=== PATIENT | female | born 1995 | race Two or more races ===

== ENCOUNTER 2023-07-08 19:55 | Emergency (ER) | payer OTHER, SELFPAY ==
--- NOTE | ~2023-07-08 | XR_ITS ---
EXAMINATION: XR CHEST CLINICAL INFORMATION: Cough history of asthma COMPARISON: None available. TECHNIQUE: Frontal view of the chest was obtained. FINDINGS: No focal consolidation. No pneumothorax. Trachea is midline. Heart and mediastinal silhouette is not enlarged. No large pleural effusion. Osseous structures are intact. Soft tissues are unremarkable. XR/XR chest 1V IMPRESSION: No acute cardiopulmonary process.
[2023-07-08 20:03] VITALS: BP 100/64; PULSE 72; RESP 19; TEMP 36.5; O2SAT 97; BMI 23.7
--- OUTSIDE RECORDS SUMMARY | 2023-07-08 20:43 | XMS_ITS | Continuity of Care Document ---
Author Name Unknown Organization [facility] Address [address], 4t [place] [address]- Care Team Providers Care Sulfonator Operator Name Role Phone Carolyn NÚÑEZ, Renetta García Primary Care Physici an [id number] Date(s): 04/20/23 - 05/20/23 [facility] [address], [address]th [place] [address]- Attending Physician: Danii Galicia Admitting Physician: Danii Galciia Referring Physician: AdmtrDanii Allergies, Adverse Reactions, Alerts No Known Allergies Immunizations Given and Recorded Vaccine Date Status Refusal Reason SARS-CoV-2 (COVID-19) mRNA BNT-162b2 vac 10/16/20 Recorded SARS-CoV-2 (COVID-19) mRNA BNT-162b2 vac 09/25/20 Recorded tetanus/diphtheria/pertussis, acel(Tdap) 11/30/17 Given Medications clotrimazole 1% vaginal cream with applicator 1 application, Vaginally, Daily at bedtime, for 7 nights If 1% is not available, change to clotrimazole 2% cream vaginal hs x 3 nights, # 45 Gm, 0 Refills, Maintenance, 04/21/23 11:18:00 EST, [facility]/pharmacy #[id number], Partial fill upon patient reque... Start Date: 04/21/23 Status: Ordered ibuprofen 600 mg oral tablet 600 mg, 1, tablet, By Mouth, Every 8 hours, # 30 tablet, Refills 0, Tot. Refills 0, Maintenance, 03/17/23 20:19:00 EDT, Route to Pharmacy Electronically, [facility]/pharmacy #[id number], Partial fill upon patientrequest if the prescription is for a schedule II op... Start Date: 03/17/23 Status: Ordered omeprazole 20 mg oral enteric coated capsule 1 capsule = 20 mg, By Mouth, 2 times a day, # 180 capsule, 2 Refills, Maintenance, 08/26/21 8:33:00EDT, EC Capsule, [id number], Partial fill upon patient request if the prescription is for aschedule II opioid drug., 154.9, cm, 08/14/21 14:18... Start Date: 08/26/21 Status: Ordered Problem List Condition Confirmation Course Effective Dates Status Health St [facility] Informant Asthma Confirmed Active Chronic pelvic pain in female Confirmed Active Irregular menses Confirmed Active Amharic speaking patient - loan associate required Confirmed Active Dyspareunia, female Confirmed Active Last Pap smear 08/31/20 negative with negative HPV Confirmed Active Social History Social History Type Response Smoking Status Never (less than 100 in lifetime); Exposure to Secondhand Smoke: No entered on: 05/21/21 Sex Patient Care team information Care Team Personnel Name: Carolyn NÚÑEZ, Renetta García Position: [facility] PCO Associate Professional Member Role: PCP Address: Address: [address] [place] [address]- Name: Zoila Levi RN Position: [facility] OB RN Member Role: Primary Care Nurse Name: Stef Vieyra RN Position: [facility] OB RN Member Role: Primary Care Nurse Care Team Related Persons Name: VERONA BRITO Address: [id number] Address: home [address] [place] [id number] [place] Name: CARMEN MONTIEL Address: [address] [address]
--- OUTSIDE RECORDS SUMMARY | 2023-07-08 20:43 | XMS_ITS | Continuity of Care Document ---
Author Name Unknown Organization [facility] Address [address] [place] [address]- Care Team Providers Care Hose Tubing Backer Name Role Phone Carolyn NÚÑEZ, Renetta García Primary Care Physici an [place] [facility] [place]20 - 10/01/20 [facility]/[address] [address]- Allergies, Adverse Reactions, Alerts Substance Reaction Severity Status NKA Active Immunizations Given and Recorded Vaccine Date Status Refusal Reason tetanus/diphtheria/pertussis, acel(Tdap) 11/30/17 Given Medications Diflucan 150 mg oral tablet 1 tablet = 150 mg, By Mouth, Once, # 1 tablet, 1 Refills, Soft Stop, 09/04/18 15:11:47 EDT Start Date: 09/04/18 Status: Ordered omeprazole 20 mg oral delayed release tablet 1 tablet = 20 mg, By Mouth, Daily, Take 30 minutes before meal. Martiniquais, # 60 tablet, 1 Refills, Maintenance, 06/30/20 9:17:00 EST, EC Tablet, [facility], Partial fill upon patient request if the prescription is for a schedule II... Start Date: 06/30/20 Status: Ordered ondansetron 4 mg oral tablet, disintegrating 1 tablet = 4 mg, By Mouth, Every 8 hours, PRN as needed for nausea/vomiting, # 9 tablet, 0 Refills,Maintenance, 06/26/20 0:45:00 EST, DIS Tablet, [id number], Partial fill upon patient request if the prescription is for a schedule II... Start Date: 06/26/20 Stop Date: 06/29/20 Status: Ordered pantoprazole 20 mg oral delayed release tablet 1 tablet = 20 mg, By Mouth, Daily, # 30 tablet, 2 Refills, Maintenance, 09/30/20 15:31:00 EDT, 158,cm, 09/16/20 9:46:00 EDT, Height, 53.17, kg, 07/16/20 14:40:00 EST, Dry Weight Start Date: 09/30/20 Status: Ordered Problem List Condition Effective Dates Status Health Status Inform ant Anemia(Confirmed) Active Asthma(Confirmed) Active Hx of Incompetent cervix in prior , delivered at term(Confirmed) Active LGSIL on Pap smear of cervix(Confirmed) Active History of delivery(Confirmed) Active Martiniquais speaking patient(Confirmed) Active Social History Social History Type Response Smoking Status Never smoker entered on: 05/14/14 Sex
--- OUTSIDE RECORDS SUMMARY | 2023-07-08 20:43 | XMS_ITS | Continuity of Care Document ---
Author Name Unknown Organization [facility] Address [address] [place] [address]- Care Team Providers Care Specification Manager Name Role Phone Carolyn NÚÑEZ, Renetta García Primary Care Physici an [place] [facility]25[place]22 - 03/27/22 [facility] [address] [place] [address]- Allergies, Adverse Reactions, Alerts No Known Allergies Immunizations Given and Recorded Vaccine Date Status Refusal Reason SARS-CoV-2 (COVID-19) mRNA BNT-162b2 vac 10/16/20 Recorded SARS-CoV-2 (COVID-19) mRNA BNT-162b2 vac 09/25/20 Recorded tetanus/diphtheria/pertussis, acel(Tdap) 11/30/17 Given Medications omeprazole 20 mg oral enteric coated capsule 1 capsule = 20 mg, By Mouth, 2 times a day, # 180 capsule, 2 Refills, Maintenance, 08/26/21 8:33:00EDT, EC Capsule, [id number], Partial fill upon patient request if the prescription is for aschedule II opioid drug., 154.9, cm, 08/14/21 14:18... Start Date: 08/26/21 Status: Ordered Problem List Condition Confirmation Course Effective Dates Status Health St [facility] Informant Asthma Confirmed Active Chronic pelvic pain in female Confirmed Active Irregular menses Confirmed Active German speaking patient - hourly sign language interpreter required Confirmed Active Dyspareunia, female Confirmed Active Last Pap smear 08/31/20 negative with negative HPV Confirmed Active Social History Social History Type Response Smoking Status Never (less than 100 in lifetime); Exposure to Secondhand Smoke: No entered on: 05/21/21 Sex Patient Care team information Personnel Name: Carolyn NÚÑEZ, Renetta García Address: Address: [address] [place] [address] [place] [address]- [place]
--- OUTSIDE RECORDS SUMMARY | 2023-07-08 20:43 | XMS_ITS | Continuity of Care Document ---
Author Name Unknown Organization [facility] Address [address] [place] [address]- Care Team Providers Care Camp Assistant Name Role Phone Carolyn NÚÑEZ, Renetta García Primary Care Physici an Encounter [facility] Date(s): 09/17/20 - 10/17/20 [facility]/[address] [address]- Allergies, Adverse Reactions, Alerts Substance Reaction Severity [...] Mouth, Daily, Take 30 minutes before meal. Jordanian, # 60 tablet, 1 Refills, Maintenance, 06/30/20 9:17:00 EST, EC Tablet, [facility], Partial fill upon patient request if the prescription is for a schedule II... Start Date: 06/30/20 Status: Ordered ondansetron 4 mg oral tablet, disintegrating 1 tablet = 4 mg, By Mouth, Every 8 hours, PRN as needed for nausea/vomiting, # 9 tablet, 0 Refills,Maintenance, 06/26/20 0:45:00 EST, DIS Tablet, [facility] #[id number], Partial fill upon patient request if the [...] of cervix(Confirmed) Active History of delivery(Confirmed) Active Jordanian speaking patient(Confirmed) Active Social History Social History Type Response Smoking Status Never smoker entered on: 05/14/14 Sex
--- OUTSIDE RECORDS SUMMARY | 2023-07-08 20:43 | XMS_ITS | Continuity of Care Document ---
Author Name Unknown Organization [facility] Address Unknown Care Team Providers Care Day Care Worker Name Role Phone Carolyn NÚÑEZ, Renetta García Primary Care Physici an [id number] Date(s): 10/06/21 - 11/06/21 [facility] Attending Physician: Vipin Paulino MD Admitting Physician: Vipin Paulino MD Allergies, Adverse Reactions, Alerts No Known Allergies Immunizations Given and Recorded Vaccine Date Status Refusal Reason SARS-CoV-2 (COVID-19) mRNA BNT-162b2 vac 10/16/20 Recorded SARS-CoV-2 (COVID-19) mRNA BNT-162b2 vac 09/25/20 Recorded tetanus/diphtheria/pertussis, acel(Tdap) 11/30/17 Given Medications albuterol 0.083% inhalation solution 3 mL = 2.5 mg, Inhalation, Every 6 hours, PRN Wheezing/Shortness of Breath, # 60 each, 5 Refills, Maintenance, 10/08/21 16:38:00 EDT, [facility], [id number], Partial fill upon patient request if the prescription is for a schedule II opioid drug.... Start Date: 10/08/21 Status: Ordered omeprazole 20 mg oral enteric coated capsule 1 capsule = 20 mg, By Mouth, 2 times a day, # 180 capsule, 2 Refills, Maintenance, 08/26/21 8:33:00EDT, EC Capsule, [id number], Partial fill upon patient request if the prescription is for aschedule II opioid drug., 154.9, cm, 08/14/21 14:18... Start Date: 08/26/21 Status: Ordered tamsulosin 0.4 mg oral capsule 0.4 mg, 1, capsule, By Mouth, Daily, Take 1 tablet by mouth daily for bladder spasms in hebrew please alba, # 5 capsule, Refills 0, Tot. Refills 0, Maintenance, 05/03/21 16:06:00 EST, Route to Pharmacy Electronically, [facility],... Start Date: 05/03/21 Stop Date: 05/08/21 Status: Ordered Problem List Condition Effective Dates Status Health Status Inform ant Asthma(Confirmed) Active Chronic pelvic pain in female(Confirmed) Active Irregular menses(Confirmed) Active Niuean speaking patient - i nterpreter required(Confirmed) Active Dyspareunia, female(Confirmed) Active Last Pap smear 08/31/20 negat nicole with negative HPV(Confirmed) Active Social History Social History Type Response Smoking Status Never (less than 100 in lifetime); Exposure to Secondhand Smoke: No entered on: 05/21/21 Sex
--- OUTSIDE RECORDS SUMMARY | 2023-07-08 20:43 | XMS_ITS | Continuity of Care Document ---
Author Name Unknown Organization [facility] Address [address] [place] [address]- Care Team Providers Care Senior Sales Representative Name Role Phone Carolyn NÚÑEZ, Renetta García Primary Care Physici an [id number] Date(s): 08/14/21 - 08/21/21 [facility] [address] [place] [address]- Attending Physician: Melina Antoine MD Referring Physician: Renetta Leon NP Allergies, Adverse Reactions, Alerts No Known Allergies Immunizations Given and Recorded Vaccine Date Status Refusal Reason tetanus/diphtheria/pertussis, acel(Tdap) 11/30/17 Given Medications Acetaminophen = 500 mg, By Mouth, 3 times a day, Maintenance, 04/14/21 13:03:00 EST, Partial fill upon patient request if the prescription is for a schedule II opioid drug. Start Date: 04/14/21 Status: Ordered dicyclomine 10 mg oral capsule 1 capsule = 10 mg, By Mouth, 4 times a day, # 120 capsule, 2 Refills, Maintenance, 05/16/21 13:27:00 EST, [facility], Partial fill upon patient request if the prescription is for a schedule II opioid drug., 154.9, cm, 05/03/21 15:2... Start Date: 05/16/21 Stop Date: 08/14/21 Status: Ordered fluconazole 150 mg oral tablet See Instructions, 1 tablet By Mouth. May repeat in 3 days if symptoms persist., # 2 tablet, 0 Refills, Maintenance, 08/14/21 14:57:00 EST, Tablet, [facility]/pharmacy #[id number], Partial fill upon patient request if the prescription is for a schedule II opioid d... Start Date: 08/14/21 Status: Ordered omeprazole 20 mg oral enteric coated capsule 1 capsule = 20 mg, By Mouth, 2 times a day, # 30 capsule, 2 Refills, Maintenance, 05/16/21 13:27:00EST, EC Capsule, [facility], Partial fill upon patient request if the prescription is for a schedule II opioid drug., 154.9, cm, 11... Start Date: 05/16/21 Status: Ordered tamsulosin 0.4 mg oral capsule 0.4 mg, 1, capsule, By Mouth, Daily, Take 1 tablet by mouth daily for bladder spasms in ukrainian please ke, # 5 capsule, Refills 0, Tot. Refills 0, Maintenance, 05/03/21 16:06:00 EST, Route to Pharmacy Electronically, [facility],... Start Date: 05/03/21 Stop Date: 05/08/21 Status: Ordered Problem List Condition Effective Dates Status Health Status Inform ant Asthma(Confirmed) Active Hx of Incompetent cervix in prior , delivered at term(Confirmed) Active Chronic pelvic pain in female(Confirmed) Active History of delivery(Confirmed) Active Georgian speaking patient(Confirmed) Active Vital Signs Most recent to oldest [Reference Range]: 1 Height 154.9 cm (08/14/21 2:18 PM) Oxygen Saturation [94-100 %] 100 % (08/14/21 2:18 PM) Pulse Rate [55-90 bpm] 95 bpm *H* (08/14/21 2:18 PM) Blood Pressure [90-138/55-84 mm Hg] 117/ 52mm Hg (08/14/21 2:18 PM) Respiratory Rate [16-30 br/min] 16 br/mi n (08/14/21 2:18 PM) Temperature [96.8-100.4 DegF] 98.8 DegF (08/14/21 2:18 PM) Mode of Delivery (Oxygen) Room air (08/14/21 2:18 PM) Blood pressure sites Arm, right (08/14/21 2:18 PM) Temperature Route Temporal (08/14/21 2:18 PM) Social History Social History Type Response Smoking Status Never (less than 100 in lifetime); Exposure to Secondhand Smoke: No entered on: 05/21/21 Sex
--- OUTSIDE RECORDS SUMMARY | 2023-07-08 20:43 | XMS_ITS | Continuity of Care Document ---
Author Name Unknown [facility] Address [address] [place] [address]- Care Team Providers Care Loan Supervisor Name Role Phone Carolyn NÚÑEZ, Renetta García Primary Care Physici an Encounter [facility] Date(s): 01/31/22 - 03/02/22 [facility] [address], 4th [place] [address]- [place] Allergies, Adverse Reactions, Alerts No Known Allergies [...] female Confirmed Active Irregular menses Confirmed Active Estonian speaking patient - automotive artist required Confirmed Active Dyspareunia, female Confirmed Active Last Pap smear 08/31/20 negative with negative HPV Confirmed Active Social History Social History Type Response Smoking Status Never (less than 100 in lifetime); Exposure to Secondhand Smoke: No entered on: 05/21/21 Sex Patient Care team information Personnel Name: Carolyn NÚÑEZ, Renetta García Address: Address: [address] [place] [id number]
--- OUTSIDE RECORDS SUMMARY | 2023-07-08 20:43 | XMS_ITS | Continuity of Care Document ---
Author Name Unknown Organization [facility] Address [address] [place] [address]- Care Team Providers Care Heel Reducer Name Role Phone Carolyn NÚÑEZ, Renetta García Primary Care Physici an [facility] [id number] Date(s): 05/02/23 - 06/01/23 [facility] [place] [address]- Attending Physician: Danii Galicia Admitting Physician: Admtr [id number] Referring Physician: Admtr, Ar8 Allergies, Adverse Reactions, Alerts No Known Allergies [...] Gm, 0 Refills, Maintenance, 04/21/23 11:18:00 EST, [facility]/pharmacy #[id number], Partial fill upon patient reque... Start Date: 04/21/23 Status: Ordered ibuprofen 600 mg oral tablet 600 mg, 1, tablet, By Mouth, Every 8 hours, # 30 tablet, Refills 0, Tot. Refills 0, Maintenance, 03/17/23 20:19:00 EDT, Route to Pharmacy Electronically, [facility]/pharmacy #[id number], Partial fill upon patientrequest if the prescription is for a schedule II op... Start Date: 03/17/23 Status: Ordered omeprazole 20 mg oral enteric coated capsule 1 capsule = 20 mg, By Mouth, 2 times a day, # 180 capsule, 2 Refills, Maintenance, 08/26/21 8:33:00EDT, EC Capsule, [id number], Partial fill upon patient request if the prescription is for aschedule II opioid drug., 154.9, cm, 08/14/21 14:18... Start Date: 08/26/21 Status: Ordered Problem List Condition Confirmation Course Effective Dates Status Health St [facility] Informant Asthma Confirmed Active Chronic pelvic pain in female Confirmed Active Irregular menses Confirmed Active Moldovan speaking patient - cash reconciliation specialist required Confirmed Active Dyspareunia, female Confirmed Active Last Pap smear 08/31/20 negative with negative HPV Confirmed Active Social History Social History Type Response Smoking Status Never (less than 100 in lifetime); Exposure to Secondhand Smoke: No entered on: 05/21/21 Sex Patient Care team information Care Team Personnel Name: Carolyn NÚÑEZ, Renetta García Position: [facility] PCO Associate Professional Member Role: PCP Address: Address: [address] [place] [address]- Name: Zoila Levi RN Position: [facility] OB RN Member Role: Primary Care Nurse Name: Stef Vieyra RN Position: [facility] OB RN Member Role: Primary Care Nurse Care Team Related Persons Name: VERONA BRITO Address: [address] Address: home [address] [place] [address] [place] Name: CARMEN MONTIEL Address: home [address] [place] [address]
--- OUTSIDE RECORDS SUMMARY | 2023-07-08 20:43 | XMS_ITS | Continuity of Care Document ---
Author Name Unknown Organization [facility] Address Unknown Care Team Providers Care Global Recruiter Name Role Phone Carolyn NÚÑEZ, Renetta García Primary Care Physici an [place] [facility] [place] 07/[place]21 - 08/29/21 [facility] Attending Physician: Danii Galicia Admitting Physician: Danii Galicia Referring Physician: Danii Galicia Allergies, Adverse Reactions, Alerts No Known Allergies Immunizations Given and Recorded Vaccine Date Status Refusal Reason tetanus/diphtheria/pertussis, acel(Tdap) 11/30/17 Given Medications omeprazole 20 mg oral enteric coated capsule 1 capsule = 20 mg, By Mouth, 2 times a day, # 180 capsule, 2 Refills, Maintenance, 08/26/21 8:33:00EDT, EC Capsule, [facility]/pharmacy #[id number], Partial fill upon patient request if the prescription is for aschedule II opioid drug., 154.9, cm, 08/14/21 14:18... Start Date: 08/26/21 Status: Ordered tamsulosin 0.4 mg oral capsule 0.4 mg, 1, capsule, By Mouth, Daily, Take 1 tablet by mouth daily for bladder spasms in mexican please ke, # 5 capsule, Refills 0, Tot. Refills 0, Maintenance, 05/03/21 16:06:00 EST, Route to Pharmacy Electronically, [facility],... Start Date: 05/03/21 Stop Date: 05/08/21 Status: Ordered Problem List Condition Effective Dates Status Health Status Inform ant Asthma(Confirmed) Active Hx of Incompetent cervix in prior , delivered at term(Confirmed) Active Chronic pelvic pain in female(Confirmed) Active History of delivery(Confirmed) Active Nigerian speaking patient(Confirmed) Active Social History Social History Type Response Smoking Status Never (less than 100 in lifetime); Exposure to Secondhand Smoke: No entered on: 05/21/21 Sex
--- OUTSIDE RECORDS SUMMARY | 2023-07-08 20:43 | XMS_ITS | Continuity of Care Document ---
Author Name Unknown Organization [facility] Address Unknown Care Team Providers Care Cuprous Chloride Helper Name Role Phone Carolyn NÚÑEZ, Renteta García Primary Care Physici an [id number] Date(s): 10/07/21 - 11/06/21 [facility] Attending Physician: Danii Galicia Admitting Physician: Danii [...] by mouth daily for bladder spasms in tamazight please alba, # 5 capsule, Refills 0, Tot. Refills 0, Maintenance, 05/03/21 16:06:00 EST, Route to Pharmacy Electronically, [facility],... Start Date: 05/03/21 Stop Date: 05/08/21 Status: Ordered Problem List Condition Effective Dates Status Health Status Inform ant Asthma(Confirmed) Active Chronic pelvic pain in female(Confirmed) Active Irregular menses(Confirmed) Active Turkmen speaking patient - i nterpreter required(Confirmed) Active Dyspareunia, female(Confirmed) Active Last Pap smear 08/31/20 negat nicole with negative HPV(Confirmed) Active Social History Social History Type Response Smoking Status Never (less than 100 in lifetime); Exposure to Secondhand Smoke: No entered on: 05/21/21 Sex
--- OUTSIDE RECORDS SUMMARY | 2023-07-08 20:43 | XMS_ITS | Continuity of Care Document ---
Author Name Unknown Organization [facility] Address Unknown Care Team Providers Care Cash Accountant Name Role Phone Carolyn NÚÑEZ, Renetta García [facility] Physici [id number] Date(s): 05/03/21 - 06/02/21 [facility] Allergies, Adverse Reactions, Alerts Substance Reaction Severity [...] capsule, 2 Refills, Maintenance, 05/16/21 13:27:00 EST, [facility], Partial fill upon patient request if the prescription is for a schedule II opioid drug., 154.9, cm, 05/03/21 15:2... Start Date: 05/16/21 Stop Date: 08/14/21 Status: Ordered omeprazole 20 mg oral enteric coated capsule 1 capsule = 20 mg, By Mouth, 2 times a day, # 30 capsule, 2 Refills, Maintenance, 05/16/21 13:27:00EST, EC Capsule, [facility], Partial fill upon patient request if the prescription is for a schedule II opioid drug., 154.9, cm, 11... Start Date: 05/16/21 Status: Ordered tamsulosin 0.4 mg oral capsule 0.4 mg, 1, capsule, By Mouth, Daily, Take 1 tablet by mouth daily for bladder spasms in kiswahili please ke, # 5 capsule, Refills 0, Tot. Refills 0, Maintenance, 05/03/21 16:06:00 EST, Route to Pharmacy Electronically, [facility],... Start Date: 05/03/21 Stop Date: 05/08/21 Status: Ordered Problem List Condition Effective Dates Status Health Status Inform ant Anemia(Confirmed) Active Asthma(Confirmed) Active Hx of Incompetent cervix in prior , delivered at term(Confirmed) Active LGSIL on Pap smear of cervix(Confirmed) Active History of delivery(Confirmed) Active Welsh speaking patient(Confirmed) Active Social History Social History Type Response Smoking Status Never (less than 100 in lifetime); Exposure to Secondhand Smoke: No entered on: 05/21/21 Sex
--- OUTSIDE RECORDS SUMMARY | 2023-07-08 20:43 | XMS_ITS | Continuity of Care Document ---
Author Name Unknown Organization [facility] Address [address] [place] [address]- Care Team Providers Care Fingerer Name Role Phone Carolyn NÚÑEZ, Renetta García Primary Care Physici an Encounter [facility] [id number] Date(s): 04/30/23 - 05/30/23 [facility] [address] [place] [address]- Attending Physician: Danii Galicia Admitting Physician: AdmtrDanii Referring Physician: Admtr, Ar8 Allergies, Adverse Reactions, [...] Gm, 0 Refills, Maintenance, 04/21/23 11:18:00 EST, [facility]/pharmacy #[id number], Partial fill upon patient reque... Start Date: 04/21/23 Status: Ordered ibuprofen 600 mg oral tablet 600 mg, 1, tablet, By Mouth, Every 8 hours, # 30 tablet, Refills 0, Tot. Refills 0, Maintenance, 03/17/23 20:19:00 EDT, Route to Pharmacy Electronically, [facility]/pharmacy #[id number], Partial fill upon patientrequest if the prescription is for a schedule II op... Start Date: 03/17/23 Status: Ordered omeprazole 20 mg oral enteric coated capsule 1 capsule = 20 mg, By Mouth, 2 times a day, # 180 capsule, 2 Refills, Maintenance, 08/26/21 8:33:00EDT, EC Capsule, [facility]/pharmacy #[id number], Partial fill upon patient request if the prescription is for aschedule II opioid drug., 154.9, cm, 08/14/21 14:18... Start Date: 08/26/21 Status: Ordered Problem List Condition Confirmation Course Effective Dates Status Health St [facility] Informant Asthma Confirmed Active Chronic pelvic pain in female Confirmed Active Irregular menses Confirmed Active Rwandan speaking patient - retirement benefits specialist required Confirmed Active Dyspareunia, female Confirmed Active Last Pap smear 08/31/20 negative with negative HPV Confirmed Active Social History Social History Type Response Smoking Status Never (less than 100 in lifetime); Exposure to Secondhand Smoke: No entered on: 05/21/21 Sex Patient Care team information Care Team Personnel Name: Carolyn NÚÑEZ, Renetta García Position: [facility] PCO Associate Professional Member Role: PCP Address: Address: [address] [place] [address]- Name: Zoila Levi RN Position: [facility] OB RN Member Role: Primary Care Nurse Name: Stef Vieyra RN Position: [facility] OB RN Member Role: Primary Care Nurse Care Team Related Persons Name: VERONA BRITO Address: [id number] Address: [address] [place] [address] [place] Name: CARMEN MONTIEL Address: [address] [place] [address]
--- OUTSIDE RECORDS SUMMARY | 2023-07-08 20:43 | XMS_ITS | Continuity of Care Document ---
Author Name Unknown Organization [facility] Address [address] [place] [address]- Care Team Providers Care Stonemason Apprentice Name Role Phone Carolyn NÚÑEZ, Renetta García Primary Care Physici an Encounter [facility] Date(s): 04/21/23 - 05/21/23 [facility] [place] [address]- [place] Allergies, Adverse Reactions, Alerts No Known [...] Gm, 0 Refills, Maintenance, 04/21/23 11:18:00 EST, [facility]/pharmacy #[id number], Partial fill upon patient reque... Start Date: 04/21/23 Status: Ordered ibuprofen 600 mg oral tablet 600 mg, 1, tablet, By Mouth, Every 8 hours, # 30 tablet, Refills 0, Tot. 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 Active Dyspareunia, female Confirmed Active Last Pap smear 08/31/20 negative with negative HPV Confirmed Active Social History Social History Type Response Smoking Status Never (less than 100 in lifetime); Exposure to Secondhand Smoke: No entered on: 05/21/21 Sex Patient Care team information Care Team Personnel Name: Carolyn NÚÑEZ, Renetta García Position: [facility] PCO Associate Professional Member Role: PCP Address: Address: [address] [place] [address]- Name: Zoila Levi RN Position: [facility] OB RN Member Role: Primary Care Nurse Name: Stef Vieyra RN Position: [facility] OB RN Member Role: Primary Care Nurse Care Team Related Persons Name: VERONA BRITO Address: [address] Address: home [address] [place] [address] [place] Name: CARMEN MONTIEL Address: home [address] [place] [address]
--- OUTSIDE RECORDS SUMMARY | 2023-07-08 20:43 | XMS_ITS | Continuity of Care Document ---
Author Name Unknown Organization [facility] Address [address] [place] [address]- Care Team Providers Care Sales Project Administrator Name Role Phone Carolyn NÚÑEZ, Renetta García Primary Care Physici an Encounter [facility] ACCT [facility] [id number] Date(s): 09/16/20 - 10/16/20 [facility]/[address] [address]- Attending Physician: Danii Galicia Admitting Physician: AdmtrDanii Referring Physician: Admtr, Danii Allergies, Adverse Reactions, Alerts Substance Reaction Severity [...] Mouth, Daily, Take 30 minutes before meal. Maltese, # 60 tablet, 1 Refills, Maintenance, 06/30/20 9:17:00 EST, EC Tablet, [facility], Partial fill upon patient request if the prescription is for a schedule II... Start Date: 06/30/20 Status: Ordered ondansetron 4 mg oral tablet, disintegrating 1 tablet = 4 mg, By Mouth, Every 8 hours, PRN as needed for nausea/vomiting, # 9 tablet, 0 Refills,Maintenance, 06/26/20 0:45:00 EST, DIS Tablet, [facility][id number], Partial fill upon patient request if the [...] of cervix(Confirmed) Active History of delivery(Confirmed) Active Maltese speaking patient(Confirmed) Active Social History Social History Type Response Smoking Status Never smoker entered on: 05/14/14 Sex
--- OUTSIDE RECORDS SUMMARY | 2023-07-08 20:43 | XMS_ITS | Continuity of Care Document ---
Author Name Unknown Organization [facility] Address [address] [place] [address]- Care Team Providers Care Faculty Administrator Name Role Phone Carolyn NÚÑEZ, Renetta García Primary Care Physici an Encounter [facility] Date(s): 08/25/20 - 09/24/20 [facility]/[address] [address]- Allergies, Adverse Reactions, Alerts Substance Reaction Severity [...] Mouth, Daily, Take 30 minutes before meal. Central African, # 60 tablet, 1 Refills, Maintenance, 06/30/20 9:17:00 EST, EC Tablet, [facility], Partial fill upon patient request if the prescription is for a schedule II... Start Date: 06/30/20 Status: Ordered ondansetron 4 mg oral tablet, disintegrating 1 tablet = 4 mg, By Mouth, Every 8 hours, PRN as needed for nausea/vomiting, # 9 tablet, 0 Refills,Maintenance, 06/26/20 0:45:00 EST, DIS Tablet, [facility][id number], Partial fill upon patient request if the prescription is for a schedule II... Start Date: 06/26/20 Stop Date: 06/29/20 Status: Ordered Problem List Condition Effective Dates Status Health Status Inform ant Anemia(Confirmed) Active Asthma(Confirmed) Active Hx of Incompetent cervix in prior , delivered at term(Confirmed) Active LGSIL on Pap smear of cervix(Confirmed) Active History of delivery(Confirmed) Active Central African speaking patient(Confirmed) Active Social History Social History Type Response Smoking Status Never smoker entered on: 05/14/14 Sex
--- OUTSIDE RECORDS SUMMARY | 2023-07-08 20:43 | XMS_ITS | Continuity of Care Document ---
Author Name Unknown Organization [facility] Address [address], [address] [place] [address]- Care Team Providers Care Client Hr Manager Name Role Phone Carolyn NÚÑEZ, Renetta García [id number]14[facility] - 01/13/[facility] [employer] [facility] [address], [address] [place] [address]- Attending Physician: Danii Galicia Admitting Physician: Danii Galicia Referring Physician: AdmtrDanii Allergies, Adverse Reactions, Alerts [...] for aschedule II opioid drug., 154.9, cm, 03/12/22 14:18... Start Date: 08/26/21 Status: Ordered tamsulosin 0.4 mg oral capsule 0.4 mg, 1, capsule, By Mouth, Daily, Take 1 tablet by mouth daily for bladder spasms in french please alba, # 5 capsule, Refills 0, Tot. Refills 0, Maintenance, 05/03/21 16:06:00 EST, Route to Pharmacy Electronically, [facility],... Start Date: 05/03/21 Stop Date: 05/08/21 Status: Ordered Problem List Condition Effective Dates Status Health Status Inform ant Asthma(Confirmed) Active Chronic pelvic pain in female(Confirmed) Active Irregular menses(Confirmed) Active Bulgarian speaking patient - i nterpreter required(Confirmed) Active Dyspareunia, female(Confirmed) Active Last Pap smear 08/31/20 negat nicole with negative HPV(Confirmed) Active Social History Social History Type Response Smoking Status Never (less than 100 in lifetime); Exposure to Secondhand Smoke: No entered on: 05/21/21 Sex
--- OUTSIDE RECORDS SUMMARY | 2023-07-08 20:43 | XMS_ITS | Continuity of Care Document ---
Author Name Unknown Organization [facility] Address [address], [address]t [place] [address]- Care Team Providers Care Dumper Name Role Phone Carolyn NÚÑEZ, Renetta García Primary [facility]ici [id number]/27/23 [facility] [address], [address] [place] [address]- Attending Physician: Maribel Kebede MD Referring Physician: Carolyn NÚÑEZ, Renetta García Allergies, Adverse Reactions, Alerts No Known Allergies [...] Gm, 0 Refills, Maintenance, 04/21/23 11:18:00 EST, [facility]/pharmacy #[id number], Partial fill upon patient reque... Start Date: 04/21/23 Status: Ordered ibuprofen 600 mg oral tablet 600 mg, 1, tablet, By Mouth, Every 8 hours, # 30 tablet, Refills 0, Tot. Refills 0, Maintenance, 03/17/23 20:19:00 EDT, Route to Pharmacy Electronically, [facility]/pharmacy #[id number], Partial fill upon patientrequest if the prescription is for a schedule II op... Start Date: 03/17/23 Status: Ordered metroNIDAZOLE 500 mg oral tablet 1 tablet = 500 mg, By Mouth, 2 times a day, for 7 days, do not drink alcohol, # 14 tablet, 0 Refills, Acute 04/28/23 11:17:00 EST, 04/21/23 11:17:00 EST, [id number], ., 155, cm, 04/20/23 15:27:00 EST, Height, 54.5, kg, 03/17/23 20:04:00 EDTRomy. 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 Active Dyspareunia, female Confirmed Active Last Pap smear 08/31/20 negative with negative HPV Confirmed Active Vital Signs Most recent to oldest [Reference Range]: 1 Height 155 cm (04/20/23 3:27 PM) Weight 56.18 kg (04/20/23 3:27 PM) Pulse Rate [55-90 bpm] 82 bpm (04/20/23 3:27 PM) Body Mass Index [18.5-24.99 kg/m2] 23.38 kg/m2 (04/20/23 3:27 PM) Blood Pressure [90-138/55-84 mm Hg] 110/ 62mm Hg (04/20/23 3:27 PM) Blood pressure sites Arm, right (04/20/23 3:27 PM) Weight Obtained Via Standing scale (04/20/23 3:27 PM) Social History Social History Type Response Smoking Status Never (less than 100 in lifetime); Exposure to Secondhand Smoke: No entered on: 05/21/21 Sex Patient Care team information Care Team Personnel Name: Carolyn NURSE, Renetta García Position: [facility] PCO Associate Professional Member Role: PCP Address: Address: [address] [place] [address]- Name: Zoila Levi RN Position: [facility] OB RN Member Role: Primary Care Nurse Name: Stef Vieyra RN Position: [facility] OB RN Member Role: Primary Care Nurse Care Team Related Persons Name: VERONA BRITO Address: [address] Address: home [address] [place] [address] [place] Name: CARMEN MONTIEL Address: home [address] [place] [address]
--- OUTSIDE RECORDS SUMMARY | 2023-07-08 20:43 | XMS_ITS | Continuity of Care Document ---
Author Name Unknown Organization [facility] Address [address] [place] [address]- Care Team Providers Care Plant Operations Manager Name Role Phone Carolyn NÚÑEZ, Renetta García Primary Care Physici an Encounter [facility] Date(s): 06/25/20 - 06/26/[address] [address]- Discharge Disposition: A-D/C Home Attending Physician: Xenia Freeman MD Admitting Physician: Xenia Freeman MD Referring Physician: Not on Staff, Referring MD Allergies, Adverse Reactions, Alerts Substance Reaction Severity Status NKA Active Immunizations Given and Recorded Vaccine Date Status Refusal Reason tetanus/diphtheria/pertussis, acel(Tdap) 11/30/17 Given Medications Diflucan 150 mg oral tablet 1 tablet = 150 mg, By Mouth, Once, # 1 tablet, 1 Refills, Soft Stop, 09/04/18 15:11:47 EDT Start Date: 09/04/18 Status: Ordered ibuprofen 600 mg oral tablet 600 mg, 1, tablet, By Mouth, 4 times a day, PRN, for 5 days, # 20 tablet, Refills 0, Tot. Refills 0, Acute 07/01/20 0:45:00 EST, for pain, 06/26/20 0:45:00 EST, Route to Pharmacy Electronically, [facility] #[id number], Partial fill upon patient r... Start Date: 06/26/20 Stop Date: 07/01/20 Status: Ordered ondansetron 4 mg oral tablet, disintegrating 1 tablet = 4 mg, By Mouth, Every 8 hours, PRN as needed for nausea/vomiting, # 9 tablet, 0 Refills,Maintenance, 06/26/20 0:45:00 EST, DIS Tablet, [facility] #[id number], Partial fill upon patient request if the prescription is for a schedule II... Start Date: 06/26/20 Stop Date: 06/29/20 Status: Ordered Problem List Condition Effective Dates Status Health Status Inform ant Anemia(Confirmed) Active Asthma(Confirmed) Active Hx of Incompetent cervix in prior , delivered at term(Confirmed) Active LGSIL on Pap smear of cervix(Confirmed) Active History of delivery(Confirmed) Active Cypriot speaking patient(Confirmed) Active Vital Signs Most recent to oldest [Reference Range]: 1 2 Oxygen Saturation [94-100 %] 100 % (06/26/20 12:41 AM) 100 % (06/25/20 6:20 PM) Pulse Rate [55-90 bpm] 83 bpm (06/26/20 12:41 AM) 84 bpm (06/25/20 6:20 PM) Blood Pressure [90-138/55-84 mm Hg] 102/ 63mm Hg (06/26/20 12:41 AM) 109/55mm Hg (06/25/20 6:20 PM) Respiratory Rate [16-30 br/min] 16 br/mi n (06/26/20 12:41 AM) 16 br/min (06/25/20 6:20 PM) Temperature [96.8-100.4 DegF] 98.2 DegF (06/25/20 6:20 PM) Mode of Delivery (Oxygen) Room air (06/26/20 12:41 AM) Room air (06/25/20 6:20 PM) Blood pressure sites Arm, right (06/26/20 12:41 AM) Arm, right (06/25/20 6:20 PM) Temperature Route Oral (06/25/20 6:20 PM) Social History Social History Type Response Smoking Status Never smoker entered on: 05/14/14 Sex
--- OUTSIDE RECORDS SUMMARY | 2023-07-08 20:43 | XMS_ITS | Continuity of Care Document ---
Author Name Unknown Organization [facility] Address [address] [place] [address]- Care Team Providers Care Shell Core And Molding Supervisor Name Role Phone Carolyn NÚÑEZ, Renetta García Primary Care Physici an En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 Active Dyspareunia, female Confirmed Active Last Pap smear 08/31/20 negative with negative HPV Confirmed Active Social History Social History Type Response Smoking Status Never (less than 100 in lifetime); Exposure to Secondhand Smoke: No entered on: 05/21/21 Sex Patient Care team information Care Team Personnel Name: Carolyn NÚÑEZ, Renetta García Position: [facility] PCO Associate Professional Member Role: PCP Address: Address: [address] [place] [address]- Name: Zoila Levi RN Position: [facility] OB RN Member Role: Primary Care Nurse Name: Stef Vieyra RN Position: [facility] OB RN Member Role: Primary Care Nurse Care Team Related Persons Name: VERONA BRITO Address: [address] Address: home [address] [place] [address] [place] Name: CARMEN MONTIEL Address: home [address] [place] [address]
--- OUTSIDE RECORDS SUMMARY | 2023-07-08 20:43 | XMS_ITS | Continuity of Care Document ---
Author Name Unknown Organization [facility] Address [address] [place] [address]- Care Team Providers Care Instrument Designer Name Role Phone Carolyn NÚÑEZ, Renetta García Primary Care Physici an [place] [facility] Date(s): 08/14/21 - 09/13/21 [facility] [address] [place], [place] [address] Attending Physician: Danii Galicia Admitting Physician: Danii Galicia Referring Physician: AdmtrDanii Allergies, Adverse Reactions, Alerts No Known Allergies Immunizations Given and Recorded Vaccine Date Status Refusal Reason tetanus/diphtheria/pertussis, acel(Tdap) 11/30/17 Given Medications omeprazole 20 mg oral enteric coated capsule 1 capsule = 20 mg, By Mouth, 2 times a day, # 180 capsule, 2 Refills, Maintenance, 08/26/21 8:33:00EDT, EC Capsule, [facility]/pharmacy #[id number], Partial fill upon patient request if the prescription is for aschedule II opioid drug., 154.9, cm, 08/14/21 14:18... Start Date: 08/26/21 Status: Ordered tamsulosin 0.4 mg oral capsule 0.4 mg, 1, capsule, By Mouth, Daily, Take 1 tablet by mouth daily for bladder spasms in hungarian please ke, # 5 capsule, Refills 0, Tot. Refills 0, Maintenance, 05/03/21 16:06:00 EST, Route to Pharmacy Electronically, [facility],... Start Date: 05/03/21 Stop Date: 05/08/21 Status: Ordered Problem List Condition Effective Dates Status Health Status Inform ant Asthma(Confirmed) Active Hx of Incompetent cervix in prior , delivered at term(Confirmed) Active Chronic pelvic pain in female(Confirmed) Active History of delivery(Confirmed) Active Montserratian speaking patient(Confirmed) Active Social History Social History Type Response Smoking Status Never (less than 100 in lifetime); Exposure to Secondhand Smoke: No entered on: 05/21/21 Sex
--- OUTSIDE RECORDS SUMMARY | 2023-07-08 20:44 | XMS_ITS | Continuity of Care Document ---
Author Name Unknown Organization [facility] Address [address] [place] [address]- Care Team Providers Care Chart Computer Name Role Phone Carolyn NÚÑEZ, Renetta García Primary Care Physici an Encounter [facility] [place] Date(s): 03/17/23 - 03/17/[address] [address]- Encounter Diagnosis Pyelonephritis(Final) - 03/17/23 Discharge Disposition: A-D/C Home Attending Physician: Manjit Bo MD Admitting Physician: Manjit Bo MD Referring Physician: Not on Staff, Referring MD Allergies, Adverse Reactions, Alerts No Known Allergies Immunizations Given and Recorded Vaccine Date Status Refusal Reason SARS-CoV-2 (COVID-19) mRNA BNT-162b2 vac 10/16/20 Recorded SARS-CoV-2 (COVID-19) mRNA BNT-162b2 vac 09/25/20 Recorded tetanus/diphtheria/pertussis, acel(Tdap) 11/30/17 Given Medications cefpodoxime 200 mg oral tablet 1 tablet = 200 mg, By Mouth, Every 12 hours, for 10 days, # 20 tablet, 0 Refills, Acute 03/27/23 18:01:00 EDT, 03/17/23 18:01:00 EDT, Tablet, [id number], Partial fill upon patient request if the prescription is for a schedule II opioid drug.,... Start Date: 03/17/23 Stop Date: 03/27/23 Status: Ordered ibuprofen 600 mg oral tablet 600 mg, 1, tablet, By Mouth, Every 8 hours, # 30 tablet, Refills 0, Tot. 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 FINDINGS: Right kidney: 10.1 cm in length. No hydronephrosis. Normal parenchymal thickness and echotexture. No stones. No suspicious mass. Left kidney: 11.0 cm in length. No hydronephrosis. Normal parenchymal thickness and echotexture. Nostones. No suspicious mass. Urinary bladder: Incompletely distended, but no evidence of stone, mass or debris. IMPRESSION: No hydronephrosis or shadowing renal stone. WSN: [id number] Ordering Physician: Manjit Bo MD Dictated By: Rafat Segovia MD Dictated Date/Time: 03/17/23 4:47 pm Reviewed By: Rafat Segovia MD Signed By: Rafat Segovia MD Signed Date/Time: 03/17/23 4:47 pm Transcribed By: LIBBY Transcribed Date/Time: 03/17/23 4:46 pm Vital Signs Most recent to oldest [Reference Range]: 1 2 3 Height 155 cm (03/17/23 8:04 PM) 155 cm (03/17/23 6:00 PM) 155 cm (03/17/23 3:12 PM) Oxygen Saturation [94-100 %] 100 % (03/17/23 8:04 PM) 99 % (03/17/23 6:00 PM) 97 % (03/17/23 3:12 PM) Pulse Rate [55-90 bpm] 72 bpm (03/17/23 8:04 PM) 74 bpm (03/17/23 6:00 PM) 100 bpm *H* (03/17/23 3:12 PM) Blood Pressure [90-138/55-84 mm Hg] 102/56mm Hg (03/17/23 8:04 PM) 98/50mm Hg (03/17/23 6:00 PM) 120/69mm Hg (03/17/23 3:12 PM) Respiratory Rate [16-30 br/min] 17 br/min (03/17/23 8:04 PM) 18 br/min (03/17/23 6:00 PM) 16 br/min (03/17/23 3:12 PM) Temperature [96.8-100.4 DegF] 98.6 DegF (03/17/23 8:04 PM) 98.2 DegF (03/17/23 6:00 PM) 98.6 DegF (03/17/23 3:12 PM) Mode of Delivery (Oxygen) Room air (03/17/23 8:04 PM) Room air (03/17/23 6:00 PM) Room air (03/17/23 3:12 PM) Blood pressure sites Arm, right (03/17/23 8:04 PM) Arm, right (03/17/23 6:00 PM) Arm, left (03/17/23 3:12 PM) Temperature Route Oral (03/17/23 8:04 PM) Oral (03/17/23 6:00 PM) Oral (03/17/23 3:12 PM) Dry Weight 54.5 kg (03/17/23 8:04 PM) 54.5 kg (03/17/23 6:00 PM) 54.5 kg (03/17/23 3:12 PM) Dry Weight Obtained Via Patient/family s tated (03/17/23 3:12 PM) Social History Social History Type Response Smoking Status Never (less than 100 in lifetime); Exposure to Secondhand Smoke: No entered on: 05/21/21 Sex Note * Dc MOHAMUD, Lesly Zarate: PERFORM Event Display: Patient Education Leaflets Authored Date: [id number] Kidney Infection (Adult Female) ?? [id number] Infecci??n renal (carol adulta) Charity infecci??n en kimmy o ambos ri??ones se llama pielonefritis. Suele presentarse cuando entran bacterias en los ri??ones. En casos poco frecuentes, es causada por el ingreso en el ri?n de otros g??rmenes, justin virus, hongos u otros organismos que causan enfermedades. Las bacterias u otros organismos que causan enfermedades pueden entrar en los ri??ones a elba??s de la vejiga o la shruthi, desdeotras partes del cuerpo. Charity infecci??n renal puede volverse grave. Puede causar charity enfermedad grave, formaci??n de cicatrices en los ri??ones o insuficiencia renal, si no se la trata correctamente. Entre las causas comunes de lizzie problema se incluyen las siguientes: ??? No mantener limpia y seca la magalis genital, lo que fomenta el crecimiento de bacterias. ??? Limpiarse de atr??s hacia adelante. De lizzie modo, se arrastran bacterias del recto hacia la abertura urinaria (uretra). ??? Usar pantalones o ropa interior apretados. [place] permite la acumulaci??n de humedad en la magalis genital, lo que ayuda a las bacterias a crecer. ??? Aguantar la orina por per??odos largos. ??? Deshidrataci??n. ??? Infecciones de las v??as urinarias. ??? Obstrucciones de orina que sedrenan desde el ri?n, justin por un c??lculo renal. Las infecciones renales pueden causar s??ntomas parecidos a los de charity infecci??n de vejiga. Los s??ntomas incluyen: ??? Dolor (o ardor) al orinar. ??? Tener que orinar m??s frecuentemente que de costumbre. ??? Shruthi en la orina (de color collins o borden). ??? Dolor o molestias abdominales (del est??hugo), por lo general, en la parte inferior del abdomen. ??? Dolor en el costado o en la espalda. ??? Dolor por encimadel hueso p??bico. ??? Fiebre o escalofr??os. ??? V??mitos. ??? P??rdida de apetito El tratamiento se realiza con antibi??ticos por v??a oral. Los casos m??s graves se tratan con antibi??ticos por v??a intramuscular o IV (intravenosa). Se inicia de inmediato gusman administraci??n y se podr??an modificar charity vez que se los resultados del cultivo de orina muestren los organismos que causaron la infecci??n. El tratamiento ayuda a prevenir charity infecci??n renal m??s grave. Los s??ntomasde las infecciones renales pueden variar seg??n gusman edad. Medicamentos Los medicamentos pueden ayudar a tratar infecciones de la vejiga: ??? [place] los antibi??ticos exactamente seg??n se lo hayan recetado hasta terminarlos, aunque se sienta mejor. [place] es importante paraasegurarse de que la infecci??n haya desaparecido. ??? Elena que le hayan recetado otro medicamento, puede nuris medicamentos de venta evita para aliviar el dolor, la fiebre o las molestias. Si tieneuna enfermedad renal o hep??yuki cr??lamont, consulte con gusman proveedor de atenci??n m??dica antes de nuris estos medicamentos. Tambi??n hable con gusman proveedor de atenci??n m??dica si alguna vez tuvo charity ??lcera estomacal o sangrado gastrointestinal, o si shaka medicamentos anticoagulantes. ?? Cuidados en el hogar Las siguientes son normas de cuidado general: ??? Qu??dese en gusman casa. No vaya al trabajo o la escuela. Descanse en cama hasta que la fiebre desaparezca y usted se sienta mejor, o seg??n le indique gusman proveedor de atenci??n m??dica. ??? [place] abundante cantidad de l??quido, elena que le hayan indicado limitar los l??quidos por otras razones m??dicas. Eso roel?? que el medicamento ingrese mejor al sistema urinario y arrastrar?? las bacterias fuera de gusman cuerpo. Preg??ntele a gusman proveedor de atenci??n m??dica cu??nto l??quido debe beber. ??? Evite mantener relaciones sexuales hasta hilda terminado todo el medicamento y todos los s??ntomas hayan desaparecido. ??? No consuma cafe??na, alcohol ni alimentos picantes. Estas comidas puedan irritar los ri??ones y la vejiga. ??? No se d?? ba??os de espuma. La sensibilidad a las sustancias qu??micas de los ba??os de espuma puede irritar la uretra. ??? Aseg??rese de limpiarse del frente hacia atr??s despu??s de ir al ba??o. ??? Use ropa suelta y ropa interior de algod??n. Prevenci??n Estos pasos para el cuidado personal pueden ayudar a prevenir futuras infecciones: ??? [place] abundante cantidad de l??quidos para prevenir la deshidrataci??n y vaciar la vejiga. H??kim elena que debarestringir el consumo de l??quidos por otros motivos o si gusman proveedor de atenci??n m??dica le diceque no lo alex. ??? Es importante limpiarse correctamente despu??s de ir al ba??o. Aseg??rese de limpiarse del frente hacia atr??s despu??s de ir al ba??o. ??? Orine con m??s frecuencia. No trate de aguantar la orina por mucho tiempo. ??? No use pantalones ni ropa interior ajustados. ??? Mejore gusman dieta para prevenir el estre??imiento. Coma m??s frutas, vegetales y fibra. Coma menos comida chatarra y grasosa. El estre??imiento puede??aumentar la probabilidad de??charity infecci??n en las v??as urinarias. Hable con gusman proveedor de atenci??n m??dica si tiene dificultades para evacuar. ??? Orine yusef despu??s de tener relaciones sexuales, para vaciar la vejiga. ?? Atenci??n de seguimiento Consulte con gusman proveedor de atenci??n m??dica seg??n le hayan indicado. Se podr??an requerir an??lisis adicionales para asegurarse de que la infecci??n haya desaparecido. Es muy importante hacer un seguimiento estrecho y m??s an??lisis para encontrar la causa y prevenir infecciones en el futuro. Si le hicieron un cultivo de orina, se comunicar??n con usted para decirle si es necesario cambiarle el tratamiento. Puede llamar para saber los resultados, si as?? se lo indicaron. Si se hizo charity radiograf??a, tomograf??a computarizada u otra prueba de diagn??stico, le informar??n sobre nuevos hallazgos que puedan afectar la atenci??n m??dica que necesita. Llame al 911 Llame al 911 ante cualquiera de los siguientes s??ntomas: ??? Dificultades para respirar. ??? Debilidad, mareo o desmayo. ??? Frecuencia card??porter r??pida o muy lenta. ??? Debilidad, mareos o desmayos. ??? Problemas para despertarse o confusi??n. ?? Cu??ndo debe buscar atenci??n m??dica Llame a gusman proveedor de atenci??n m??dica de inmediato si le sucede lo siguiente: ??? Fiebre de??100.4?F (38?C) o m??s kylah, o seg??n le indique el proveedor de atenci??n m??dica. ??? No se siente mejor o empeoran los s??ntomas en 1 a 2 d??as despu??s de comenzar a nuris antibi??ticos. ??? Si cualquiera de los s??ntomas persiste despu??s de mark d??as de tratamiento. ??? Aumento del dolor en el est??hugo, en la espalda, el costado del cuerpo o la magalis de la entrepierna. ??? V??mitos persistentes. ??? Problemas para nuris el medicamento recetado a causa de las n??useas o por cualquier otra kelsie??n. ??? Shruthi en la orina, orina de color oscuro, orina de olor f??tido. ??? Problemas para orinar o reducci??n en la cantidad de orina. ??? No corrales orinado en ocho horas, no tiene l??grimas al llorar, presenta confusi??n, tiene los ojos hundidos o la boca seca. ?? Last Reviewed Date: 2016 ?? [id number] [employer] Todos los derechos reservados. Esta informaci??n no pretende sustituir la atenci??n m??dica profesional. S??lo gusman m??dico puede diagnosticar y tratar un problema de brit. ?? Patient Care team information Care Team Personnel Name: Carolyn NÚÑEZ, Renetta García Position: [facility] PCO Associate Professional Member Role: PCP Address: Address: [address] [place] [address]- Name: Zoila Levi RN Position: [facility] OB RN Member Role: Primary Care Nurse Name: Stef Vieyra RN Position: [facility] OB RN Member Role: Primary Care Nurse Name: Vern Lora Position: [facility] ED RN W/OE and Tasks Member Role: Patient Care Provider Name: Lesly Hurtado Position: [facility] Associate Professional Member Role: ED Physician Detector Car Operator Address: Address: [address] [place] [address]- Name: Manjit Bo MD Position: [facility] ED Medicine MD Member Role: Admitting Physician Address: Address: [address] [place] [address] [address] Care Team Related Persons Name: VERONA BRITO Address: [address] Address: home [address] [place] [address] Name: CARMEN MONTIEL Address: home [address] [place] [address]
--- OUTSIDE RECORDS SUMMARY | 2023-07-08 20:44 | XMS_ITS | Continuity of Care Document ---
Author Name Unknown Organization [facility] Address [address] [place] [address]- Care Team Providers Care Head Of Design Name Role Phone Carolyn NÚÑEZ, Renetta García Primary Care Physici an [place] [facility] [place]/23[place]21 - 04/22/21 [facility] [address] [place] [address]- Attending Physician: Danii Galicia Admitting Physician: Danii Galicia Referring Physician: Danii Galicia Allergies, Adverse Reactions, Alerts Substance Reaction Severity Status NKA Active Immunizations Given and Recorded Vaccine Date Status Refusal Reason tetanus/diphtheria/pertussis, acel(Tdap) 11/30/17 Given Medications Acetaminophen = 500 mg, By Mouth, 3 times a day, Maintenance, 04/14/21 13:03:00 EST, Partial fill upon patient request if the prescription is for a schedule II opioid drug. Start Date: 04/14/21 Status: Ordered Problem List Condition Effective Dates Status Health Status Inform ant Anemia(Confirmed) Active Asthma(Confirmed) Active Hx of Incompetent cervix in prior , delivered at term(Confirmed) Active LGSIL on Pap smear of cervix(Confirmed) Active History of delivery(Confirmed) Active British speaking patient(Confirmed) Active Social History Social History Type Response Smoking Status Never smoker entered on: 05/14/14 Sex
--- OUTSIDE RECORDS SUMMARY | 2023-07-08 20:44 | XMS_ITS | Continuity of Care Document ---
Author Name Unknown Organization [facility] Address [address] [place] [address]- Care Team Providers Care Project Management Professor Name Role Phone Carolyn NÚÑEZ, Renetta García Primary Care Physici an [place] [facility] [place]04[place]20 - 09/03/20 [facility] [address] [place], [place] [address] Attending Physician: Danii Galicia Admitting Physician: Danii Galicia Referring Physician: AdmtrDanii Allergies, Adverse Reactions, Alerts Substance Reaction Severity [...] Mouth, Daily, Take 30 minutes before meal. Zambian, # 60 tablet, 1 Refills, Maintenance, 06/30/20 9:17:00 EST, EC Tablet, [facility], Partial fill upon patient request if the prescription is for a schedule II... Start Date: 06/30/20 Status: Ordered ondansetron 4 mg oral tablet, disintegrating 1 tablet = 4 mg, By Mouth, Every 8 hours, PRN as needed for nausea/vomiting, # 9 tablet, 0 Refills,Maintenance, 06/26/20 0:45:00 EST, DIS Tablet, [id number], Partial fill upon patient request if the prescription is for a schedule II... Start Date: 06/26/20 Stop Date: 06/29/20 Status: Ordered Problem List Condition Effective Dates Status Health Status Inform ant Anemia(Confirmed) Active Asthma(Confirmed) Active Hx of Incompetent cervix in prior , delivered at term(Confirmed) Active LGSIL on Pap smear of cervix(Confirmed) Active History of delivery(Confirmed) Active Zambian speaking patient(Confirmed) Active Social History Social History Type Response Smoking Status Never smoker entered on: 05/14/14 Sex
--- OUTSIDE RECORDS SUMMARY | 2023-07-08 20:44 | XMS_ITS | Continuity of Care Document ---
Author Name Unknown Organization [facility] Address [address] [place] [address]- Care Team Providers Care Automotive Parts Specialist Name Role Phone Carolyn NÚÑEZ, Renetta García Primary Care Physici [id number] - 06/[facility] [address]- Attending Physician: Carolyn NÚÑEZ, Renetta García Admitting Physician: Carolyn NÚÑEZ, Renetta García Allergies, Adverse [...] Gm, 0 Refills, Maintenance, 04/21/23 11:18:00 EST, [facility]/pharmacy #[id number], Partial fill upon patient reque... Start Date: 04/21/23 Status: Ordered ibuprofen 600 mg oral tablet 600 mg, 1, tablet, By Mouth, Every 8 hours, # 30 tablet, Refills 0, Tot. Refills 0, Maintenance, 03/17/23 20:19:00 EDT, Route to Pharmacy Electronically, [facility]/pharmacy #[id number], Partial fill upon patientrequest if the prescription is for a schedule II op... Start Date: 03/17/23 Status: Ordered omeprazole 20 mg oral enteric coated capsule 1 capsule = 20 mg, By Mouth, 2 times a day, # 180 capsule, 2 Refills, Maintenance, 08/26/21 8:33:00EDT, EC Capsule, [id number], Partial fill upon patient request if the prescription is for aschedule II opioid drug., 154.9, cm, 08/14/21 14:18... Start Date: 08/26/21 Status: Ordered Problem List Condition Confirmation Course Effective Dates Status Health [facility] Informant Asthma Confirmed Active Chronic pelvic pain in female Confirmed Active Irregular menses Confirmed Active British speaking patient - rehab spec required Confirmed Active Dyspareunia, female Confirmed Active Last Pap smear 08/31/20 negative with negative HPV Confirmed Active Social History Social History Type Response Smoking Status Never (less than 100 in lifetime); Exposure to Secondhand Smoke: No entered on: 05/21/21 Sex Patient Care team information Care Team Personnel Name: Carolyn NÚÑEZ, Renetta García Position: [facility] PCO Associate Professional Member Role: PCP Address: Address: [address] [place] [address]- Name: Zoila Levi RN Position: [facility] OB RN Member Role: Primary Care Nurse Name: Stef Vieyra RN Position: [facility] OB RN Member Role: Primary Care Nurse Care Team Related Persons Name: VERONA BRITO Address: [address] Address: home [address] [place] [address] [place] Name: CARMEN MONTIEL Address: home [address] [place] [address]
--- OUTSIDE RECORDS SUMMARY | 2023-07-08 20:44 | XMS_ITS | Continuity of Care Document ---
Author Name Unknown Organization [facility] Address Unknown Care Team Providers Care Wind Turbine Service Technician Name Role Phone Carolyn NÚÑEZ, Renetta García Primary Care Physici an Encounter [facility] [place] Date(s): 08/04/21 - 09/03/21 [facility] Allergies, Adverse Reactions, Alerts No Known Allergies Immunizations Given and Recorded Vaccine Date Status Refusal Reason tetanus/diphtheria/pertussis, acel(Tdap) 11/30/17 Given Medications omeprazole 20 mg oral enteric coated capsule 1 capsule = 20 mg, By Mouth, 2 times a day, # 180 capsule, 2 Refills, Maintenance, 08/26/21 8:33:00EDT, EC Capsule, [facility]acy #[id number], Partial fill upon patient request if the prescription is for aschedule II opioid drug., 154.9, cm, 08/14/21 14:18... Start Date: 08/26/21 Status: Ordered tamsulosin 0.4 mg oral capsule 0.4 mg, 1, capsule, By Mouth, Daily, Take 1 tablet by mouth daily for bladder spasms in japanese please alba, # 5 capsule, Refills 0, Tot. Refills 0, Maintenance, 05/03/21 16:06:00 EST, Route to Pharmacy Electronically, [facility],... Start Date: 05/03/21 Stop Date: 05/08/21 Status: Ordered Problem List Condition Effective Dates Status Health Status Inform ant Asthma(Confirmed) Active Hx of Incompetent cervix in prior , delivered at term(Confirmed) Active Chronic pelvic pain in female(Confirmed) Active History of delivery(Confirmed) Active New Zealander speaking patient(Confirmed) Active Social History Social History Type Response Smoking Status Never (less than 100 in lifetime); Exposure to Secondhand Smoke: No entered on: 05/21/21 Sex
--- OUTSIDE RECORDS SUMMARY | 2023-07-08 20:44 | XMS_ITS | Continuity of Care Document ---
Author Name Unknown Organization [facility] Address [address] [place] [address]- Care Team Providers Care Manufacturing Engineering Technologist Name Role Phone Carolyn NÚÑEZ, Renetta García Primary Care Physici an [id number] Date(s): 10/12/22 - 12/02/22 [facility] [address]- Attending Physician: Carolyn NÚÑEZ, Renetta García Admitting [...] female Confirmed Active Irregular menses Confirmed Active Luxembourger speaking patient - medicare compliance auditor required Confirmed Active Dyspareunia, female Confirmed Active Last Pap smear 08/31/20 negative with negative HPV Confirmed Active Social History Social History Type Response Smoking Status Never (less than 100 in lifetime); Exposure to Secondhand Smoke: No entered on: 05/21/21 Sex Patient Care team information Care Team Personnel Name: Carolyn NÚÑEZ, Renetta García Position: [facility] PCO Associate Professional Member Role: PCP Address: Address: [address] [place] [address]- Name: Zoila Levi RN Position: [facility] OB RN Member Role: Primary Care Nurse Name: Stef Vieyra RN Position: [facility] OB RN Member Role: Primary Care Nurse Care Team Related Persons Name: VERONA BRITO Address: [address] Address: home [address] Name: CARMEN MONTIEL Address: home [address] [place] [address]
--- OUTSIDE RECORDS SUMMARY | 2023-07-08 20:44 | XMS_ITS | Continuity of Care Document ---
Author Name Unknown Organization [facility] Address Unknown Care Team Providers Care Air Bag Buffer Name Role Phone Carolyn NÚÑEZ, Renetta García Primary Care Physici an Encounter [facility] [place] Date(s): 12/20/21 - 01/19/22 [facility] Allergies, Adverse Reactions, Alerts No Known Allergies [...] by mouth daily for bladder spasms in tur[place] and [place] islander please ke, # 5 capsule, Refills 0, Tot. Refills 0, Maintenance, 05/03/21 16:06:00 EST, Route to Pharmacy Electronically, [facility] [place],... Start Date: 05/03/21 Stop Date: 05/08/21 Status: Ordered Problem List Condition Effective Dates Status Health Status Inform ant Asthma(Confirmed) Active Chronic pelvic pain in female(Confirmed) Active Irregular menses(Confirmed) Active Salvadorean speaking patient - i nterpreter required(Confirmed) Active Dyspareunia, female(Confirmed) Active Last Pap smear 08/31/20 negat nicole with negative HPV(Confirmed) Active Social History Social History Type Response Smoking Status Never (less than 100 in lifetime); Exposure to Secondhand Smoke: No entered on: 05/21/21 Sex
--- OUTSIDE RECORDS SUMMARY | 2023-07-08 20:44 | XMS_ITS | Continuity of Care Document ---
Author Name Unknown Organization [facility] Address Unknown Care Team Providers Care Social Media Marketer Name Role Phone Carolyn NÚÑEZ, Renetta García Primary Care Physici an [facility] [id number] Date(s): 05/21/21 - 06/20/21 [facility] Attending Physician: Danii Galicia Admitting Physician: Danii [...] capsule, 2 Refills, Maintenance, 05/16/21 13:27:00 EST, [facility], Partial fill upon patient request if the prescription is for a schedule II opioid drug., 154.9, cm, 05/03/21 15:2... Start Date: 05/16/21 Stop Date: 08/14/21 Status: Ordered omeprazole 20 mg oral enteric coated capsule 1 capsule = 20 mg, By Mouth, 2 times a day, # 30 capsule, 2 Refills, Maintenance, 05/16/21 13:27:00EST, EC Capsule, [facility], Partial fill upon patient request if [...] 05/03/21 16:06:00 EST, Route to Pharmacy Electronically, [facility],... Start Date: 05/03/21 Stop Date: 05/08/21 Status: Ordered Problem List Condition Effective Dates Status Health Status Inform ant Anemia(Confirmed) Active Asthma(Confirmed) Active Hx of Incompetent cervix in prior , delivered at term(Confirmed) Active LGSIL on Pap smear of cervix(Confirmed) Active History of delivery(Confirmed) Active Mohawk speaking patient(Confirmed) Active Social History Social History Type Response Smoking Status Never (less than 100 in lifetime); Exposure to Secondhand Smoke: No entered on: 05/21/21 Sex
--- OUTSIDE RECORDS SUMMARY | 2023-07-08 20:44 | XMS_ITS | Continuity of Care Document ---
Author Name Unknown Organization [facility] Address [address] [place] [address]- Care Team Providers Care Local Coordinator Name Role Phone Carolyn NÚÑEZ, Renetta García Primary Care Physici an [place] [facility] [place] - 09/06/20 [facility]/[address] [address]- Allergies, Adverse Reactions, Alerts Substance Reaction Severity [...] Mouth, Daily, Take 30 minutes before meal. Kinyarwanda, # 60 tablet, 1 Refills, Maintenance, 06/30/20 9:17:00 EST, EC Tablet, [facility], Partial fill upon patient request if the prescription is for a schedule II... Start Date: 06/30/20 Status: Ordered ondansetron 4 mg oral tablet, disintegrating 1 tablet = 4 mg, By Mouth, Every 8 hours, PRN as needed for nausea/vomiting, # 9 tablet, 0 Refills,Maintenance, 06/26/20 0:45:00 EST, DIS Tablet, [id number], Partial fill upon patient request if the prescription is for a schedule II... Start Date: 06/26/20 Stop Date: 06/29/20 Status: Ordered Problem List Condition Effective Dates Status Health Status Inform ant Anemia(Confirmed) Active Asthma(Confirmed) Active Hx of Incompetent cervix in prior , delivered at term(Confirmed) Active LGSIL on Pap smear of cervix(Confirmed) Active History of delivery(Confirmed) Active Kinyarwanda speaking patient(Confirmed) Active Social History Social History Type Response Smoking Status Never smoker entered on: 05/14/14 Sex
--- OUTSIDE RECORDS SUMMARY | 2023-07-08 20:44 | XMS_ITS | Continuity of Care Document ---
Author Name Unknown Organization [facility] [employer] [facility] Address [address], [address] [place] [address]- Care Team Providers Care Grooming Salon Manager Name Role Phone Carolyn NÚÑEZ, Renetta García Primary [facility]ici [id number]/18[facility] - [facility] [address], [address] [place] [address]- Attending Physician: Amy SHELBY, [place] Allergies, Adverse Reactions, Alerts No Known Allergies [...] by mouth daily for bladder spasms in scottish please alba, # 5 capsule, Refills 0, Tot. Refills 0, Maintenance, 05/03/21 16:06:00 EST, Route to Pharmacy Electronically, [facility],... Start Date: 05/03/21 Stop Date: 05/08/21 Status: Ordered Problem List Condition Effective Dates Status Health Status Inform ant Asthma(Confirmed) Active Chronic pelvic pain in female(Confirmed) Active Irregular menses(Confirmed) Active South Korean speaking patient - i nterpreter required(Confirmed) Active Dyspareunia, female(Confirmed) Active Last Pap smear 08/31/20 negat nicole with negative HPV(Confirmed) Active Social History Social History Type Response Smoking Status Never (less than 100 in lifetime); Exposure to Secondhand Smoke: No entered on: 05/21/21 Sex
--- OUTSIDE RECORDS SUMMARY | 2023-07-08 20:44 | XMS_ITS | Continuity of Care Document ---
Author Name Unknown Organization [facility] Address Unknown Care Team Providers Care Investment Counselor Name Role Phone Carolyn NÚÑEZ, Renetta García Primary Care Physici [id number] Date(s): 05/20/21 - 06/19/21 [facility] Allergies, Adverse Reactions, Alerts No Known [...] capsule, 2 Refills, Maintenance, 05/16/21 13:27:00 EST, [facility], Partial fill upon patient request if the prescription is for a schedule II opioid drug., 154.9, cm, 05/03/21 15:2... Start Date: 05/16/21 Stop Date: 08/14/21 Status: Ordered omeprazole 20 mg oral enteric coated capsule 1 capsule = 20 mg, By Mouth, 2 times a day, # 30 capsule, 2 Refills, Maintenance, 05/16/21 13:27:00EST, EC Capsule, [facility], Partial fill upon patient request if the prescription is for a schedule II opioid drug., 154.9, cm, 11... Start Date: 05/16/21 Status: Ordered tamsulosin 0.4 mg oral capsule 0.4 mg, 1, capsule, By Mouth, Daily, Take 1 tablet by mouth daily for bladder spasms in telugu please ke, # 5 capsule, Refills 0, Tot. Refills 0, Maintenance, 05/03/21 16:06:00 EST, Route to Pharmacy Electronically, [facility],... Start Date: 05/03/21 Stop Date: 05/08/21 Status: Ordered Problem List Condition Effective Dates Status Health Status Inform ant Anemia(Confirmed) Active Asthma(Confirmed) Active Hx of Incompetent cervix in prior , delivered at term(Confirmed) Active LGSIL on Pap smear of cervix(Confirmed) Active History of delivery(Confirmed) Active Hungarian speaking patient(Confirmed) Active Social History Social History Type Response Smoking Status Never (less than 100 in lifetime); Exposure to Secondhand Smoke: No entered on: 05/21/21 Sex
--- OUTSIDE RECORDS SUMMARY | 2023-07-08 20:44 | XMS_ITS | Continuity of Care Document ---
Author Name Unknown Organization [facility] Address [address] [place] [address]- Care Team Providers Care Designated Broker Name Role Phone Carolyn NÚÑEZ, Renetta García Primary Care Physici an [place] [facility] [place] 01/07/21 [facility] [address] [place] [address]- Allergies, Adverse Reactions, Alerts Substance Reaction Severity Status NKA Active Immunizations Given and Recorded Vaccine Date Status Refusal Reason tetanus/diphtheria/pertussis, acel(Tdap) 11/30/17 Given Medications amitriptyline 10 mg oral tablet 10 mg, 1, tablet, By Mouth, Daily at bedtime, # 30 tablet, Refills 2, Tot. Refills 2, Maintenance, 12/10/20 11:11:00 EDT, Route to Pharmacy Electronically, [facility], Partial fill upon patient request if the prescription is for a... Start Date: 12/10/20 Stop Date: 03/10/21 Status: Ordered diphenhydrAMINE 50 mg oral capsule 1 capsule = 50 mg, By Mouth, Once, 0 Refills, Maintenance, 10/21/20 7:25:00 EDT, Partial fill upon patient request if the prescription is for a schedule II opioid drug. Start Date: 10/21/20 Status: Ordered pantoprazole 20 mg oral delayed release tablet 1 tablet = 20 mg, By Mouth, Daily, # 30 tablet, 2 Refills, Maintenance, 09/30/20 15:31:00 EDT, 158,cm, 09/16/20 9:46:00 EDT, Height, 53.17, kg, 07/16/20 14:40:00 EST, Dry Weight Start Date: 09/30/20 Status: Ordered Protonix 40 mg oral delayed release tablet 1 tablet = 40 mg, By Mouth, Daily, # 30 tablet, 4 Refills, Maintenance, 12/10/20 11:43:00 EDT, EC Tablet, 157.5, cm, 12/10/20 10:34:00 EDT, Height, 54.7, kg, 10/21/20 7:15:00 EDT, Dry Weight Start Date: 12/10/20 Stop Date: 05/09/21 Status: Ordered Problem List Condition Effective Dates Status Health Status Inform ant Anemia(Confirmed) Active Asthma(Confirmed) Active Hx of Incompetent cervix in prior , delivered at term(Confirmed) Active LGSIL on Pap smear of cervix(Confirmed) Active History of delivery(Confirmed) Active Filipino speaking patient(Confirmed) Active Social History Social History Type Response Smoking Status Never smoker entered on: 05/14/14 Sex
--- OUTSIDE RECORDS SUMMARY | 2023-07-08 20:44 | XMS_ITS | Continuity of Care Document ---
Author Name Unknown Organization [facility] Address [address] [place] [address]- Care Team Providers Care Flagman Name Role Phone Carolyn NÚÑEZ, Renetta García Primary Care Physici an En[place] [facility] [place] Date(s): 05/12/21 - 06/11/21 [facility] [address] [place] [address]- [place] Allergies, Adverse Reactions, Alerts Substance Reaction Severity [...] capsule, 2 Refills, Maintenance, 05/16/21 13:27:00 EST, [facility], Partial fill upon patient request if the prescription is for a schedule II opioid drug., 154.9, cm, 05/03/21 15:2... Start Date: 05/16/21 Stop Date: 08/14/21 Status: Ordered omeprazole 20 mg oral enteric coated capsule 1 capsule = 20 mg, By Mouth, 2 times a day, # 30 capsule, 2 Refills, Maintenance, 05/16/21 13:27:00EST, EC Capsule, [facility], Partial fill upon patient request if the prescription is for a schedule II opioid drug., 154.9, cm, 11... Start Date: 05/16/21 Status: Ordered tamsulosin 0.4 mg oral capsule 0.4 mg, 1, capsule, By Mouth, Daily, Take 1 tablet by mouth daily for bladder spasms in korean please ke, # 5 capsule, Refills 0, Tot. Refills 0, Maintenance, 05/03/21 16:06:00 EST, Route to Pharmacy Electronically, [facility],... Start Date: 05/03/21 Stop Date: 05/08/21 Status: Ordered Problem List Condition Effective Dates Status Health Status Inform ant Anemia(Confirmed) Active Asthma(Confirmed) Active Hx of Incompetent cervix in prior , delivered at term(Confirmed) Active LGSIL on Pap smear of cervix(Confirmed) Active History of delivery(Confirmed) Active Congolese speaking patient(Confirmed) Active Social History Social History Type Response Smoking Status Never (less than 100 in lifetime); Exposure to Secondhand Smoke: No entered on: 05/21/21 Sex
--- OUTSIDE RECORDS SUMMARY | 2023-07-08 20:44 | XMS_ITS | Continuity of Care Document ---
Author Name Unknown Organization [facility] Address [address] [place] [address]- Care Team Providers Care Mixing Pan Tender Name Role Phone Carolyn NÚÑEZ, Renetta García Primary Care Physici an Encounter [facility] [place] Date(s): 07/03/20 - 09/03/20 [facility] [address] [place], [place] [address] Attending Physician: Adam Dwyer MD Admitting Physician: Adam Dwyer MD Referring Physician: Renetta Leon NP Allergies, Adverse Reactions, Alerts Substance Reaction Severity [...] Mouth, Daily, Take 30 minutes before meal. Bolivian, # 60 tablet, 1 Refills, Maintenance, 06/30/20 9:17:00 EST, EC Tablet, [facility], Partial fill upon patient request if the prescription is for a schedule II... Start Date: 06/30/20 Status: Ordered ondansetron 4 mg oral tablet, disintegrating 1 tablet = 4 mg, By Mouth, Every 8 hours, PRN as needed for nausea/vomiting, # 9 tablet, 0 Refills,Maintenance, 06/26/20 0:45:00 EST, DIS Tablet, [id number], Partial fill upon patient request if the prescription is for a schedule II... Start Date: 06/26/20 Stop Date: 06/29/20 Status: Ordered Problem List Condition Effective Dates Status Health Status Inform ant Anemia(Confirmed) Active Asthma(Confirmed) Active Hx of Incompetent cervix in prior , delivered at term(Confirmed) Active LGSIL on Pap smear of cervix(Confirmed) Active History of delivery(Confirmed) Active Bolivian speaking patient(Confirmed) Active Social History Social History Type Response Smoking Status Never smoker entered on: 05/14/14 Sex
--- OUTSIDE RECORDS SUMMARY | 2023-07-08 20:44 | XMS_ITS | Continuity of Care Document ---
Author Name Unknown Organization [facility] Address [address], [address] [place] [address]- Care Team Providers Care Video Game Technician Name Role Phone Carolyn NÚÑEZ, Renetta García Primary Care Physici [id number] 08[facility]26[facility]21 - 09/02/21 [facility] [address], [address] [place] [address]- Attending Physician: Amy SHELBY, [place] Referring Physician: Carolyn NÚÑEZ, Renetta García Allergies, Adverse Reactions, Alerts No Known Allergies Immunizations Given and Recorded Vaccine Date Status Refusal Reason tetanus/diphtheria/pertussis, acel(Tdap) 11/30/17 Given Medications omeprazole 20 mg oral enteric coated capsule 1 capsule = 20 mg, By Mouth, 2 times a day, # 180 capsule, 2 Refills, Maintenance, 08/26/21 8:33:00EDT, EC Capsule, [id number], Partial fill upon patient request if the prescription is for aschedule II opioid drug., 154.9, cm, 08/14/21 14:18... Start Date: 08/26/21 Status: Ordered tamsulosin 0.4 mg oral capsule 0.4 mg, 1, capsule, By Mouth, Daily, Take 1 tablet by mouth daily for bladder spasms in angolan please alba, # 5 capsule, Refills 0, Tot. Refills 0, Maintenance, 05/03/21 16:06:00 EST, Route to Pharmacy Electronically, [facility],... Start Date: 05/03/21 Stop Date: 05/08/21 Status: Ordered Problem List Condition Effective Dates Status Health Status Inform ant Asthma(Confirmed) Active Hx of Incompetent cervix in prior , delivered at term(Confirmed) Active Chronic pelvic pain in female(Confirmed) Active History of delivery(Confirmed) Active Albanian speaking patient(Confirmed) Active Vital Signs Most recent to oldest [Reference Range]: 1 Height 154.9 cm (08/26/21 3:08 PM) Weight 54.5 kg (08/26/21 3:08 PM) Body Mass Index [18.5-24.99] 22.71 (08/26/21 3:08 PM) Blood Pressure [90-138/55-84 mm Hg] 106/ 60mm Hg (08/26/21 3:08 PM) Blood pressure sites Arm, right (08/26/21 3:08 PM) Weight Obtained Via Standing scale (08/26/21 3:08 PM) Social History Social History Type Response Smoking Status Never (less than 100 in lifetime); Exposure to Secondhand Smoke: No entered on: 05/21/21 Sex
--- OUTSIDE RECORDS SUMMARY | 2023-07-08 20:44 | XMS_ITS | Continuity of Care Document ---
Author Name Unknown Organization [facility] Address [address], [address] [place] [address]- Care Team Providers Care Punching Machine Operator Name Role Phone Carolyn NÚÑEZ, Renetta García Primary [facility] Physici [id number] Date[facility]s): 10/08/21 - 12/18/21 [facility] [address], [address] [place] [address]- Attending Physician: Amy SHELBY, [place] Allergies, [...] by mouth daily for bladder spasms in north korean please alba, # 5 capsule, Refills 0, Tot. Refills 0, Maintenance, 05/03/21 16:06:00 EST, Route to Pharmacy Electronically, [facility],... Start Date: 05/03/21 Stop Date: [...]
--- OUTSIDE RECORDS SUMMARY | 2023-07-08 20:44 | XMS_ITS | Continuity of Care Document ---
Author Name Unknown Organization [facility] Address [address] [place] [address]- Care Team Providers Care Advanced Practice Professional Name Role Phone Carolyn NÚÑEZ, Renetta García Primary Care Physici an [place] [facility] [place] [facility] R [id number] Date(s): 07/07/20 - 08/09/20 [facility]/[address] [address]- Attending Physician: Carolyn NÚÑEZ, Renetta García Admitting Physician: Carolyn NÚÑEZ, Renetta García Allergies, Adverse Reactions, Alerts Substance Reaction Severity [...] Mouth, Daily, Take 30 minutes before meal. Palestinian, # 60 tablet, 1 Refills, Maintenance, 06/30/20 9:17:00 EST, EC Tablet, [facility], Partial fill upon patient request if the prescription is for a schedule II... Start Date: 06/30/20 Status: Ordered ondansetron 4 mg oral tablet, disintegrating 1 tablet = 4 mg, By Mouth, Every 8 hours, PRN as needed for nausea/vomiting, # 9 tablet, 0 Refills,Maintenance, 06/26/20 0:45:00 EST, DIS Tablet, [id number], Partial fill upon patient request if the prescription is for a schedule II... Start Date: 06/26/20 Stop Date: 06/29/20 Status: Ordered Problem List Condition Effective Dates Status Health Status Inform ant Anemia(Confirmed) Active Asthma(Confirmed) Active Hx of Incompetent cervix in prior , delivered at term(Confirmed) Active LGSIL on Pap smear of cervix(Confirmed) Active History of delivery(Confirmed) Active Palestinian speaking patient(Confirmed) Active Social History Social History Type Response Smoking Status Never smoker entered on: 05/14/14 Sex
--- OUTSIDE RECORDS SUMMARY | 2023-07-08 20:44 | XMS_ITS | Continuity of Care Document ---
Author Name Unknown Organization [facility] Address [address] [place] [address]- Care Team Providers Care Management Analyst Name Role Phone Carolyn NÚÑEZ, Renetta García [facility]ici [id number]/30[facility] - 05/07/23 [facility] [address] [place] [address]- Attending Physician: Catherine Montes MD Referring Physician: Renetta Leon NP Allergies, [...] Gm, 0 Refills, Maintenance, 04/21/23 11:18:00 EST, [facility]/pharmacy #[id number], Partial fill upon patient reque... Start Date: 04/21/23 Status: Ordered ibuprofen 600 mg oral tablet 600 mg, 1, tablet, By Mouth, Every 8 hours, # 30 tablet, Refills 0, Tot. Refills 0, Maintenance, 03/17/23 20:19:00 EDT, Route to Pharmacy Electronically, [facility]/pharmacy #[id number], Partial fill upon patientrequest if the prescription is for a schedule II op... Start Date: 03/17/23 Status: Ordered omeprazole 20 mg oral enteric coated capsule 1 capsule = 20 mg, By Mouth, 2 times a day, # 180 capsule, 2 Refills, Maintenance, 08/26/21 8:33:00EDT, EC Capsule, [id number], Partial fill upon patient request if the prescription is for aschedule II opioid drug., 154.9, cm, 08/14/21 14:18... Start Date: 08/26/21 Status: Ordered Problem List Condition Confirmation Course Effective Dates Status Health St [facility] Informant Asthma Confirmed Active Chronic pelvic pain in female Confirmed Active Irregular menses Confirmed Active Zambian speaking patient - lang interpreter required Confirmed Active Dyspareunia, female Confirmed Active Last Pap smear 08/31/20 negative with negative HPV Confirmed Active Vital Signs Most recent to oldest [Reference Range]: 1 Height 155 cm (04/30/23 10:34 AM) Oxygen Saturation [94-100 %] 99 % (04/30/23 10:34 AM) Pulse Rate [55-90 bpm] 80 bpm (04/30/23 10:34 AM) Blood Pressure [90-138/55-84 mm Hg] 116/ 50mm Hg (04/30/23 10:34 AM) Temperature [96.8-100.4 DegF] 97.8 DegF (04/30/23 10:34 AM) Mode of Delivery (Oxygen) Room air (04/30/23 10:34 AM) Blood pressure sites Arm, right (04/30/23 10:34 AM) Temperature Route Temporal (04/30/23 10:34 AM) Social History Social History Type Response Smoking Status Never (less than 100 in lifetime); Exposure to Secondhand Smoke: No entered on: 05/21/21 Sex Note * Sharri Robins: PERFORM, SIGN, VERIFY Event Display: Patient Education/Instruction Authored Date: [id number] [facility] Clinical Summary Name LYNNETTE WELCH Age 27 Years 1995 PCP Carolyn NÚÑEZ, Renetta García PCP Visit Date 04/30/2023 10:04:00 Additional Instructions: Scheduled Appointments?? Future Appointments ?*[facility] ?[address]??[place],??[place],??[address] ?Phone:??--?Fax:??-- ?Appt. Date:??05/02/2023?8:30 AM ?Scheduled Provider:??Carolyn NÚÑEZ, Renetta García Follow-Up Instructions ?? Diagnosis Medications: Please continue your medications until treatment is completed or stopped by your provider. Discuss any questions related to medications with your provider. Medications to Continue with No Changes These medications were not printed or sent to your pharmacy Clotrimazole (clotrimazole 1% vaginal cream with applicator) 1 don Vaginally Daily at Bedtime. for 7 nights If 1% is not available, change to clotrimazole 2% cream vaginal hs x 3 nights. Refills: 0. Next Dose: Ibuprofen (ibuprofen 600 mg oral tablet) 1 tab(s) Oral every 8 hours. Refills: 0. Next Dose: Omeprazole (omeprazole 20 mg oral enteric coated capsule) 1 capsule Oral twice a day. Refills: 2. Next Dose: Allergy Info:?? NKA Medications Given This Visit Future Orders ?COVID-19, RSV, and Flu A/B, Rapid PCR? Order Date:04/30/23?- Complete on or after?04/30/23 Vital Signs Height 155 cm Weight BMI Blood Pressure 116 mm Hg/50 mm Hg Temperature 97.8 DegF Pulse Rate 80 bpm Respiratory Rate 02 Sat Mode of Delivery 99 %/Room air You can now view a summary of your hospital visit from the comfort of your home through a free online portal called Virtual Paper. [employer] is a website that allows you to securely view your medical information including discharge summary, medications and follow-up visits. ??You can alsosend a secure electronic message to your doctor???s office to request appointments, renew medications or just ask a question. You can enroll at [email or web address] or register during your next office visit. Disclaimer:?? The information provided is of a general nature and is intended to be used in conjunction with the recommendations and advice of your health care practitioner. ??Every effort has been made to ensure that the information provided is accurate and complete at the time it is provided to you however, as your needs change, or, as new ??information becomes available, different or additional instructions may be required. If you have questions, please consult with your primary care provider or pharmacist, as appropriate. ??This information is not intended to serve as substitution for assessment and evaluation by a qualified health care provider. If you do not have a primary care provider, you may find a [facility] provider by calling [facility] [employer] Link at [phone]. [facility], in keeping with [facility] guidance, no longer requires face masks for staff, patientsor visitors in most situations. Similar to time spent indoors at other locations, there is the chance that you were exposed to respiratory viruses during your time with us (such as flu or COVID-19).? If you develop symptoms concerning for a viral respiratory infection, please seek testing (and treatment if indicated) from your medical provider or home test kit. For information about the plan of care including goals and instructions for your diagnosis, please see the patient education orders section of this document. Patient Education Materials?? The content of this educational material or handout may have been modified, supplemented, or adapted from its original content and format to support your individualized medical care. Patient Care team information Care Team Personnel Name: Renetta Leon NP Position: S PCO Associate Professional Member Role: PCP Address: Address: [address] [place] [address] [place] Name: Zoila Levi RN Position: S OB RN Member Role: Primary Care Nurse Name: Stef Vieyra RN Position: S OB RN Member Role: Primary Care Nurse Care Team Related Persons Name: VERONA BRITO Address: [address] Address: home [address] [place] [address] Name: CARMEN MONTIEL Address: home [address] [place] [address]
--- OUTSIDE RECORDS SUMMARY | 2023-07-08 20:45 | XMS_ITS | Continuity of Care Document ---
Author Name Unknown Organization [facility] Address [address] [place] [address]- Care Team Providers Care Schedule Maker Name Role Phone Carolyn NÚÑEZ, Renetta García Primary Care Physici an [place] [facility] [place] - 11/11/22 [facility] [place] [address]- [place] Allergies, Adverse Reactions, Alerts No Known [...] female Confirmed Active Irregular menses Confirmed Active Solomon Islander speaking patient - car dumper required Confirmed Active Dyspareunia, female Confirmed Active Last Pap smear 08/31/20 negative with negative HPV Confirmed Active Social History Social History Type Response Smoking Status Never (less than 100 in lifetime); Exposure to Secondhand Smoke: No entered on: 05/21/21 Sex Patient Care team information Care Team Personnel Name: Carolyn NÚÑEZ, Renetta García Position: [facility] PCO Associate Professional Member Role: PCP Address: Address: [address] [place] [address]- [place] Name: Zoila Levi RN Position: [facility] OB RN Member Role: Primary Care Nurse Name: Stef Vieyra RN Position: [facility] OB RN Member Role: Primary Care Nurse Care Team Related Persons Name: VERONA BRITO Address: [address] Address: home [address] [place] [address] [place] Name: CARMEN MONTIEL Address: home [address] [place] [address]
--- OUTSIDE RECORDS SUMMARY | 2023-07-08 20:45 | XMS_ITS | Continuity of Care Document ---
Author Name Unknown Organization [facility] Address Unknown Care Team Providers Care Hair Tinter Name Role Phone Carolyn NÚÑEZ, Renetta García Primary Care Physici an [id number] Date[facility]s): 07/23/21 - 08/22/21 [facility] Allergies, Adverse Reactions, Alerts No Known Allergies [...] capsule, 2 Refills, Maintenance, 05/16/21 13:27:00 EST, [facility], Partial fill upon patient request if the prescription is for a schedule II opioid drug., 154.9, cm, 05/03/21 15:2... Start Date: 05/16/21 Stop Date: 08/14/21 Status: Ordered fluconazole 150 mg oral tablet See Instructions, 1 tablet By Mouth. May repeat in 3 days if symptoms persist., # 2 tablet, 0 Refills, Maintenance, 08/14/21 14:57:00 EST, Tablet, [facility]/pharmacy #[id number], Partial fill upon patient request if the prescription is for a schedule II opioid d... Start Date: 08/14/21 Status: Ordered omeprazole 20 mg oral enteric coated capsule 1 capsule = 20 mg, By Mouth, 2 times a day, # 30 capsule, 2 Refills, Maintenance, 05/16/21 13:27:00EST, EC Capsule, [facility], Partial fill upon patient request if the prescription is for a schedule II opioid drug., 154.9, cm, 11... Start Date: 05/16/21 Status: Ordered tamsulosin 0.4 mg oral capsule 0.4 mg, 1, capsule, By Mouth, Daily, Take 1 tablet by mouth daily for bladder spasms in norwegian please ke, # 5 capsule, Refills 0, Tot. Refills 0, Maintenance, 05/03/21 16:06:00 EST, Route to Pharmacy Electronically, [facility],... Start Date: 05/03/21 Stop Date: 05/08/21 Status: Ordered Problem List Condition Effective Dates Status Health Status Inform ant Asthma(Confirmed) Active Hx of Incompetent cervix in prior , delivered at term(Confirmed) Active Chronic pelvic pain in female(Confirmed) Active History of delivery(Confirmed) Active Grenadian speaking patient(Confirmed) Active Social History Social History Type Response Smoking Status Never (less than 100 in lifetime); Exposure to Secondhand Smoke: No entered on: 05/21/21 Sex
--- OUTSIDE RECORDS SUMMARY | 2023-07-08 20:45 | XMS_ITS | Continuity of Care Document ---
Author Name Unknown Organization [facility] Address Unknown Care Team Providers Care Youth Career Specialist Name Role Phone Carolyn NÚÑEZ, Renetta García Primary Care Physici an [place] [facility] [place] 07/27/21 - 08/26/21 [facility] Allergies, Adverse Reactions, Alerts No Known Allergies Immunizations Given and Recorded Vaccine Date Status Refusal Reason tetanus/diphtheria/pertussis, acel(Tdap) 11/30/17 Given Medications omeprazole 20 mg oral enteric coated capsule 1 capsule = 20 mg, By Mouth, 2 times a day, # 180 capsule, 2 Refills, Maintenance, 08/26/21 8:33:00EDT, EC Capsule, [facility]/pharmacy #[id number], Partial fill upon patient request if the prescription is for aschedule II opioid drug., 154.9, cm, 08/14/21 14:18... Start Date: 08/26/21 Status: Ordered tamsulosin 0.4 mg oral capsule 0.4 mg, 1, capsule, By Mouth, Daily, Take 1 tablet by mouth daily for bladder spasms in tajik please alba, # 5 capsule, Refills 0, Tot. Refills 0, Maintenance, 05/03/21 16:06:00 EST, Route to Pharmacy Electronically, [facility],... Start Date: 05/03/21 Stop Date: 05/08/21 Status: Ordered Problem List Condition Effective Dates Status Health Status Inform ant Asthma(Confirmed) Active Hx of Incompetent cervix in prior , delivered at term(Confirmed) Active Chronic pelvic pain in female(Confirmed) Active History of delivery(Confirmed) Active Guinean speaking patient(Confirmed) Active Social History Social History Type Response Smoking Status Never (less than 100 in lifetime); Exposure to Secondhand Smoke: No entered on: 05/21/21 Sex
--- OUTSIDE RECORDS SUMMARY | 2023-07-08 20:45 | XMS_ITS | Continuity of Care Document ---
Author Name Unknown Organization [facility] Address [address] [place] [address]- Care Team Providers Care Marine Biologist Name Role Phone Carolyn NÚÑEZ, Renetta García Primary Care Physici an [place] [facility] [place] - 04/28/23 [facility] [address]- Attending Physician: Carolyn NÚÑEZ, Renetta García Admitting [...] Gm, 0 Refills, Maintenance, 04/21/23 11:18:00 EST, [facility]/pharmacy #[id number], Partial fill upon patient reque... Start Date: 04/21/23 Status: Ordered ibuprofen 600 mg oral tablet 600 mg, 1, tablet, By Mouth, Every 8 hours, # 30 tablet, Refills 0, Tot. Refills 0, Maintenance, 03/17/23 20:19:00 EDT, Route to Pharmacy Electronically, [facility]/pharmacy #[id number], Partial fill upon patientrequest if the prescription is for a schedule II op... Start Date: 03/17/23 Status: Ordered omeprazole 20 mg oral enteric coated capsule 1 capsule = 20 mg, By Mouth, 2 times a day, # 180 capsule, 2 Refills, Maintenance, 08/26/21 8:33:00EDT, EC Capsule, [facility]/pharmacy #[id number], Partial fill upon patient request if the prescription is for aschedule II opioid drug., 154.9, cm, 08/14/21 14:18... Start Date: 08/26/21 Status: Ordered Problem List Condition Confirmation Course Effective Dates Status Health [facility] Informant Asthma Confirmed Active Chronic pelvic pain in female Confirmed Active Irregular menses Confirmed Active Telugu speaking patient - substance abuse nurse required Confirmed Active Dyspareunia, female Confirmed Active Last Pap smear 08/31/20 negative with negative HPV Confirmed Active Social History Social History Type Response Smoking Status Never (less than 100 in lifetime); Exposure to Secondhand Smoke: No entered on: 05/21/21 Sex Patient Care team information Care Team Personnel Name: Carolyn NÚÑEZ, Renetta García Position: [facility] PCO Associate Professional Member Role: PCP Address: Address: [address] [place] [address]- Name: Zoila Levi RN Position: [facility] OB RN Member Role: Primary Care Nurse Name: Stef Vieyra RN Position: [facility] OB RN Member Role: Primary Care Nurse Care Team Related Persons Name: VERONA BRITO Address: [address] Address: [address] [place] [address] [place] Name: CARMEN MONTIEL Address: [address] [place] [address]
--- OUTSIDE RECORDS SUMMARY | 2023-07-08 20:45 | XMS_ITS | Continuity of Care Document ---
Author Name Unknown [facility] Address Unknown Care Team Providers Care Acupuncture Physician Name Role Phone Carolyn NÚÑEZ, Renetta García Primary Care Physici an [id number] Allergies, Adverse Reactions, Alerts No Known [...] by mouth daily for bladder spasms in swazi please alba, # 5 capsule, Refills 0, Tot. Refills 0, Maintenance, 05/03/21 16:06:00 EST, Route to Pharmacy Electronically, [facility],... Start Date: 05/03/21 Stop Date: 05/08/21 Status: Ordered Problem List Condition Effective Dates Status Health Status Inform ant Asthma(Confirmed) Active Hx of Incompetent cervix in prior , delivered at term(Confirmed) Active Chronic pelvic pain in female(Confirmed) Active History of delivery(Confirmed) Active Maldivian speaking patient(Confirmed) Active Social History Social History Type Response Smoking Status Never (less than 100 in lifetime); Exposure to Secondhand Smoke: No entered on: 05/21/21 Sex
--- OUTSIDE RECORDS SUMMARY | 2023-07-08 20:45 | XMS_ITS | Continuity of Care Document ---
Author Name Unknown Organization [facility] Address [address] [place] [address]- Care Team Providers Care Physical Plant Employee Name Role Phone Carolyn NÚÑEZ, Renetta García Primary Care Physici an [place] [facility] [place] 12/08/20 - 01/07/21 [facility] [address] [place] [address]- Allergies, Adverse Reactions, Alerts Substance Reaction Severity Status NKA Active Immunizations Given and Recorded Vaccine Date Status Refusal Reason tetanus/diphtheria/pertussis, acel(Tdap) 11/30/17 Given Medications amitriptyline 10 mg oral tablet 10 mg, 1, tablet, By Mouth, Daily at bedtime, # 30 tablet, Refills 2, Tot. Refills 2, Maintenance, 12/10/20 11:11:00 EDT, Route to Pharmacy Electronically, [facility], Partial fill upon patient request if [...] of cervix(Confirmed) Active History of delivery(Confirmed) Active Guatemalan speaking patient(Confirmed) Active Social History Social History Type Response Smoking Status Never smoker entered on: 05/14/14 Sex
--- OUTSIDE RECORDS SUMMARY | 2023-07-08 20:45 | XMS_ITS | Continuity of Care Document ---
Author Name Unknown Organization [facility] Address [address] [place] [address]- Care Team Providers Care Supervisor Coil Winding Name Role Phone Carolyn NÚÑEZ, Renetta García Primary Care Physici an [place] [facility] [place] [id number] Date(s): 07/23/20 - 09/10/20 [facility] [address]- Attending Physician: Jud Carmona CNM Admitting Physician: Jud Carmona CNM Allergies, Adverse Reactions, Alerts Substance Reaction Severity [...] Mouth, Daily, Take 30 minutes before meal. Dutch, # 60 tablet, 1 Refills, Maintenance, 06/30/20 9:17:00 EST, EC Tablet, [facility], Partial fill upon patient request if the prescription is for a schedule II... Start Date: 06/30/20 Status: Ordered ondansetron 4 mg oral tablet, disintegrating 1 tablet = 4 mg, By Mouth, Every 8 hours, PRN as needed for nausea/vomiting, # 9 tablet, 0 Refills,Maintenance, 06/26/20 0:45:00 EST, DIS Tablet, [facility][id number], Partial fill upon patient request if the prescription is for a schedule II... Start Date: 06/26/20 Stop Date: 06/29/20 Status: Ordered Problem List Condition Effective Dates Status Health Status Inform ant Anemia(Confirmed) Active Asthma(Confirmed) Active Hx of Incompetent cervix in prior , delivered at term(Confirmed) Active LGSIL on Pap smear of cervix(Confirmed) Active History of delivery(Confirmed) Active Dutch speaking patient(Confirmed) Active Social History Social History Type Response Smoking Status Never smoker entered on: 05/14/14 Sex
--- OUTSIDE RECORDS SUMMARY | 2023-07-08 20:45 | XMS_ITS | Continuity of Care Document ---
Author Name Unknown Organization [facility] Address [address] [place] [address]- Care Team Providers Care Chair Finisher Name Role Phone Carolyn NÚÑEZ, Renetta García Primary Care Physici an [place] [facility] [place] Date(s): 12/08/20 - 01/07/[address] [facility] [address] [place] [address]- Allergies, Adverse Reactions, Alerts Substance Reaction Severity Status NKA Active Immunizations Given and Recorded Vaccine Date Status Refusal Reason tetanus/diphtheria/pertussis, acel(Tdap) 11/30/17 Given Medications amitriptyline 10 mg oral tablet 10 mg, 1, tablet, By Mouth, Daily at bedtime, # 30 tablet, Refills 2, Tot. Refills 2, Maintenance, 12/10/20 11:11:00 EDT, Route to Pharmacy Electronically, [facility], Partial fill upon patient request if the [...] of cervix(Confirmed) Active History of delivery(Confirmed) Active Romanian speaking patient(Confirmed) Active Social History Social History Type Response Smoking Status Never smoker entered on: 05/14/14 Sex
--- OUTSIDE RECORDS SUMMARY | 2023-07-08 20:45 | XMS_ITS | Continuity of Care Document ---
Author Name Unknown Organization [facility] Address [address] [facility], [address] [place] [address]- Care Team Providers Care Fuselage Framer Name Role Phone Carolyn NÚÑEZ, Renetta García Primary Care Physici an [id number] Date(s): 09/28/21 - 10/05/21 [facility] [address] [place] [place] [address]- Attending Physician: Amy SHELBY, [place] Allergies, Adverse Reactions, Alerts No Known Allergies Immunizations Given and Recorded Vaccine Date Status Refusal Reason tetanus/diphtheria/pertussis, acel(Tdap) 11/30/17 Given Medications omeprazole 20 mg oral enteric coated capsule 1 capsule = 20 mg, By Mouth, 2 times a day, # 180 capsule, 2 Refills, Maintenance, 08/26/21 8:33:00EDT, EC Capsule, [facility]/pharmacy #[id number], Partial fill upon patient request if the prescription is for aschedule II opioid drug., 154.9, cm, 08/14/21 14:18... Start Date: 08/26/21 Status: Ordered tamsulosin 0.4 mg oral capsule 0.4 mg, 1, capsule, By Mouth, Daily, Take 1 tablet by mouth daily for bladder spasms in pitcairn islander please ke, # 5 capsule, Refills 0, Tot. Refills 0, Maintenance, 05/03/21 16:06:00 EST, Route to Pharmacy Electronically, [facility],... Start Date: 05/03/21 Stop Date: 05/08/21 Status: Ordered Problem List Condition Effective Dates Status Health Status Inform ant Asthma(Confirmed) Active Chronic pelvic pain in female(Confirmed) Active Irregular menses(Confirmed) Active Thai speaking patient - i nterpreter required(Confirmed) Active Dyspareunia, female(Confirmed) Active Last Pap smear 08/31/20 negat nicole with negative HPV(Confirmed) Active Vital Signs Most recent to oldest [Reference Range]: 1 Height 154.9 cm (09/28/21 8:58 AM) Weight 53.18 kg (09/28/21 8:58 AM) Body Mass Index [18.5-24.99] 22.16 (09/28/21 8:58 AM) Blood Pressure [90-138/55-84 mm Hg] 98/5 2mm Hg (09/28/21 8:58 AM) Blood pressure sites Arm, left (09/28/21 8:58 AM) Weight Obtained Via Standing scale (09/28/21 8:58 AM) Social History Social History Type Response Smoking Status Never (less than 100 in lifetime); Exposure to Secondhand Smoke: No entered on: 05/21/21 Sex
--- OUTSIDE RECORDS SUMMARY | 2023-07-08 20:45 | XMS_ITS | Continuity of Care Document ---
Author Name Unknown Organization [facility] Address Unknown Care Team Providers Care Research Pharmacist Name Role Phone Carolyn NÚÑEZ, Renetta García Primary Care Physici an [id number] Date(s): 05/06/21 - 06/05/21 [facility] Allergies, Adverse Reactions, Alerts Substance Reaction [...] capsule, 2 Refills, Maintenance, 05/16/21 13:27:00 EST, [facility], Partial fill upon patient request if the prescription is for a schedule II opioid drug., 154.9, cm, 05/03/21 15:2... Start Date: 05/16/21 Stop Date: 08/14/21 Status: Ordered omeprazole 20 mg oral enteric coated capsule 1 capsule = 20 mg, By Mouth, 2 times a day, # 30 capsule, 2 Refills, Maintenance, 05/16/21 13:27:00EST, EC Capsule, [facility], Partial fill upon patient request if the prescription is for a schedule II opioid drug., 154.9, cm, 11... Start Date: 05/16/21 Status: Ordered tamsulosin 0.4 mg oral capsule 0.4 mg, 1, capsule, By Mouth, Daily, Take 1 tablet by mouth daily for bladder spasms in bhutanese please ke, # 5 capsule, Refills 0, Tot. Refills 0, Maintenance, 05/03/21 16:06:00 EST, Route to Pharmacy Electronically, [facility],... Start Date: 05/03/21 Stop Date: 05/08/21 Status: Ordered Problem List Condition Effective Dates Status Health Status Inform ant Anemia(Confirmed) Active Asthma(Confirmed) Active Hx of Incompetent cervix in prior , delivered at term(Confirmed) Active LGSIL on Pap smear of cervix(Confirmed) Active History of delivery(Confirmed) Active Tongan speaking patient(Confirmed) Active Social History Social History Type Response Smoking Status Never (less than 100 in lifetime); Exposure to Secondhand Smoke: No entered on: 05/21/21 Sex
--- OUTSIDE RECORDS SUMMARY | 2023-07-08 20:45 | XMS_ITS | Continuity of Care Document ---
Author Name Unknown Organization [facility] Address [address], [address] [place] [address]- Care Team Providers Care Private Branch Exchange Repairer Name Role Phone Carolyn NÚÑEZ, Renetta García Primary Care Physici [id number] - 08[facility]17/21 [facility] [address], [address] [place] [address]- Attending Physician: Amy SHELBY, [place] Referring Physician: Tita Beavers CNM Allergies, Adverse Reactions, Alerts No Known Allergies [...] capsule, 2 Refills, Maintenance, 05/16/21 13:27:00 EST, [facility], Partial fill upon patient request if the prescription is for a schedule II opioid drug., 154.9, cm, 05/03/21 15:2... Start Date: 05/16/21 Stop Date: 08/14/21 Status: Ordered fluconazole 150 mg oral tablet See Instructions, 1 tablet By Mouth. May repeat in 3 days if symptoms persist., # 2 tablet, 0 Refills, Maintenance, 08/14/21 14:57:00 EST, Tablet, [facility]/pharmacy #[id number], Partial fill upon patient request if the prescription is for a schedule II opioid d... Start Date: 08/14/21 Status: Ordered nitrofurantoin macrocrystals-monohydrate 100 mg oral capsule 1 capsule = 100 mg, By Mouth, 2 times a day, for 5 days, # 10 capsule, 0 Refills, Acute 08/19/21 14:57:00 EDT, 08/14/21 14:57:00 EST, Capsule, [facility]/pharmacy #[id number], Partial fill upon patient request ifthe prescription is for a schedule II opioid drug.,... Start Date: 08/14/21 Stop Date: 08/19/21 Status: Ordered omeprazole 20 mg oral enteric coated capsule 1 capsule = 20 mg, By Mouth, 2 times a day, # 30 capsule, 2 Refills, Maintenance, 05/16/21 13:27:00EST, EC Capsule, [facility], Partial fill upon patient request if the prescription is for a schedule II opioid drug., 154.9, cm, 11... Start Date: 05/16/21 Status: Ordered tamsulosin 0.4 mg oral capsule 0.4 mg, 1, capsule, By Mouth, Daily, Take 1 tablet by mouth daily for bladder spasms in maltese please ke, # 5 capsule, Refills 0, Tot. Refills 0, Maintenance, 05/03/21 16:06:00 EST, Route to Pharmacy Electronically, [facility],... Start Date: 05/03/21 Stop Date: 05/08/21 Status: Ordered Problem List Condition Effective Dates Status Health Status Inform ant Asthma(Confirmed) Active Hx of Incompetent cervix in prior , delivered at term(Confirmed) Active Chronic pelvic pain in female(Confirmed) Active History of delivery(Confirmed) Active Senegalese speaking patient(Confirmed) Active Social History Social History Type Response Smoking Status Never (less than 100 in lifetime); Exposure to Secondhand Smoke: No entered on: 05/21/21 Sex
--- OUTSIDE RECORDS SUMMARY | 2023-07-08 20:45 | XMS_ITS | Continuity of Care Document ---
Author Name Unknown Organization [facility] Address Unknown Care Team Providers Care Mechanical Design Engineer Facilities Name Role Phone Carolyn NÚÑEZ, Renetta García Primary Care Physici an [place] [facility] [place] 10/06/21 - 11/05/21 [facility] Allergies, Adverse Reactions, Alerts No Known [...] by mouth daily for bladder spasms in niuean please ke, # 5 capsule, Refills 0, Tot. Refills 0, Maintenance, 05/03/21 16:06:00 EST, Route to Pharmacy Electronically, [facility] [place],... Start Date: 05/03/21 Stop Date: 05/08/21 Status: Ordered Problem List Condition Effective Dates Status Health Status Inform ant Asthma(Confirmed) Active Chronic pelvic pain in female(Confirmed) Active Irregular menses(Confirmed) Active Romanian speaking patient - i nterpreter required(Confirmed) Active Dyspareunia, female(Confirmed) Active Last Pap smear 08/31/20 negat nicole with negative HPV(Confirmed) Active Social History Social History Type Response Smoking Status Never (less than 100 in lifetime); Exposure to Secondhand Smoke: No entered on: 05/21/21 Sex
--- OUTSIDE RECORDS SUMMARY | 2023-07-08 20:45 | XMS_ITS | Continuity of Care Document ---
Author Name Unknown Organization [facility] Address [address], [address] [place] [address]- Care Team Providers Care Non Morse Intercept Technician Name Role Phone Carolyn NÚÑEZ, Renetta García Primary Care Physici an [id number] Date(s): 08/13/21 - 09/12/21 [facility] [address], [address] [place] [address]- Allergies, Adverse Reactions, Alerts No Known Allergies [...] by mouth daily for bladder spasms in croatian please ke, # 5 capsule, Refills 0, Tot. Refills 0, Maintenance, 05/03/21 16:06:00 EST, Route to Pharmacy Electronically, [facility],... Start Date: 05/03/21 Stop Date: 05/08/21 Status: Ordered Problem List Condition Effective Dates Status Health Status Inform ant Asthma(Confirmed) Active Hx of Incompetent cervix in prior , delivered at term(Confirmed) Active Chronic pelvic pain in female(Confirmed) Active History of delivery(Confirmed) Active Citizen Of [place] speaking patient(Confirmed) Active Social History Social History Type Response Smoking Status Never (less than 100 in lifetime); Exposure to Secondhand Smoke: No entered on: 05/21/21 Sex
--- OUTSIDE RECORDS SUMMARY | 2023-07-08 20:45 | XMS_ITS | Continuity of Care Document ---
Author Name Unknown Organization [facility] Address [address] [place] [address]- Care Team Providers Care Composition Board Press Operator Name Role Phone Carolyn NÚÑEZ, Renetta García Primary Care Physici an Encounter [facility] Date(s): 09/02/20 - 10/02/20 [facility]/[address] [address]- Allergies, Adverse Reactions, Alerts Substance Reaction Severity [...] Mouth, Daily, Take 30 minutes before meal. Russian, # 60 tablet, 1 Refills, Maintenance, 06/30/20 9:17:00 EST, EC Tablet, [facility], Partial fill upon patient request if the prescription is for a schedule II... Start Date: 06/30/20 Status: Ordered ondansetron 4 mg oral tablet, disintegrating 1 tablet = 4 mg, By Mouth, Every 8 hours, PRN as needed for nausea/vomiting, # 9 tablet, 0 Refills,Maintenance, 06/26/20 0:45:00 EST, DIS Tablet, [id number], Partial fill upon patient request if the [...] of cervix(Confirmed) Active History of delivery(Confirmed) Active Russian speaking patient(Confirmed) Active Social History Social History Type Response Smoking Status Never smoker entered on: 05/14/14 Sex
--- OUTSIDE RECORDS SUMMARY | 2023-07-08 20:45 | XMS_ITS | Continuity of Care Document ---
Author Name Unknown Organization [facility] Address [address], [address] [place] [address]- Care Team Providers Care Extension Clerk Name Role Phone Carolyn NÚÑEZ, Renetta García Primary Care Physici an [id number] Date(s): 07/22/21 - 08/21/[address] [facility] [address], [address] [place] [address]- Allergies, Adverse Reactions, Alerts No Known Allergies [...] capsule, 2 Refills, Maintenance, 05/16/21 13:27:00 EST, [facility], Partial fill upon patient request if the prescription is for a schedule II opioid drug., 154.9, cm, 05/03/21 15:2... Start Date: 05/16/21 Stop Date: 08/14/21 Status: Ordered fluconazole 150 mg oral tablet See Instructions, 1 tablet By Mouth. May repeat in 3 days if symptoms persist., # 2 tablet, 0 Refills, Maintenance, 08/14/21 14:57:00 EST, Tablet, [facility]acy #[id number], Partial fill upon patient request if the prescription is for a schedule II opioid d... Start Date: 08/14/21 Status: Ordered omeprazole 20 mg oral enteric coated capsule 1 capsule = 20 mg, By Mouth, 2 times a day, # 30 capsule, 2 Refills, Maintenance, 05/16/21 13:27:00EST, EC Capsule, [facility], Partial fill upon patient request if the prescription is for a schedule II opioid drug., 154.9, cm, 11... Start Date: 05/16/21 Status: Ordered tamsulosin 0.4 mg oral capsule 0.4 mg, 1, capsule, By Mouth, Daily, Take 1 tablet by mouth daily for bladder spasms in scottish please ke, # 5 capsule, Refills 0, Tot. Refills 0, Maintenance, 05/03/21 16:06:00 EST, Route to Pharmacy Electronically, [facility],... Start Date: 05/03/21 Stop Date: 05/08/21 Status: Ordered Problem List Condition Effective Dates Status Health Status Inform ant Asthma(Confirmed) Active Hx of Incompetent cervix in prior , delivered at term(Confirmed) Active Chronic pelvic pain in female(Confirmed) Active History of delivery(Confirmed) Active Salvadorean speaking patient(Confirmed) Active Social History Social History Type Response Smoking Status Never (less than 100 in lifetime); Exposure to Secondhand Smoke: No entered on: 05/21/21 Sex
--- OUTSIDE RECORDS SUMMARY | 2023-07-08 20:45 | XMS_ITS | Continuity of Care Document ---
Author Name Unknown Organization [facility] Address [address] [place] [address]- Care Team Providers Care It Software Developer Name Role Phone Carolyn NÚÑEZ, Renetta García Primary Care Physici an Encounter [facility] Date(s): 06/11/20 - 07/11/20 [facility]/[address] [address]- Allergies, Adverse Reactions, Alerts Substance Reaction Severity [...] Mouth, Daily, Take 30 minutes before meal. Bengali, # 60 tablet, 1 Refills, Maintenance, 06/30/20 9:17:00 EST, EC Tablet, [facility], Partial fill upon patient request if the prescription is for a schedule II... Start Date: 06/30/20 Status: Ordered ondansetron 4 mg oral tablet, disintegrating 1 tablet = 4 mg, By Mouth, Every 8 hours, PRN as needed for nausea/vomiting, # 9 tablet, 0 Refills,Maintenance, 06/26/20 0:45:00 EST, DIS Tablet, [id number], Partial fill upon patient request if the prescription is for a schedule II... Start Date: 06/26/20 Stop Date: 06/29/20 Status: Ordered Problem List Condition Effective Dates Status Health Status Inform ant Anemia(Confirmed) Active Asthma(Confirmed) Active Hx of Incompetent cervix in prior , delivered at term(Confirmed) Active LGSIL on Pap smear of cervix(Confirmed) Active History of delivery(Confirmed) Active Bengali speaking patient(Confirmed) Active Social History Social History Type Response Smoking Status Never smoker entered on: 05/14/14 Sex
--- OUTSIDE RECORDS SUMMARY | 2023-07-08 20:45 | XMS_ITS | Continuity of Care Document ---
Author Name Unknown Organization [facility] Address Unknown Care Team Providers Care Icer Air Conditioning Name Role Phone Carolyn NÚÑEZ, Renetta García Primary Care Physici an En[facility] Date(s): 10/08/21 - 11/07/21 [facility] Allergies, Adverse Reactions, Alerts No Known Allergies [...] daily for bladder spasms in angolan please ke, # 5 capsule, Refills 0, Tot. Refills 0, Maintenance, 05/03/21 16:06:00 EST, Route to Pharmacy Electronically, [facility] [place],... Start Date: 05/03/21 Stop Date: 05/08/21 Status: Ordered Problem List Condition Effective Dates Status Health Status Inform ant Asthma(Confirmed) Active Chronic pelvic pain in female(Confirmed) Active Irregular menses(Confirmed) Active Chadian speaking patient - i nterpreter required(Confirmed) Active Dyspareunia, female(Confirmed) Active Last Pap smear 08/31/20 negat nicole with negative HPV(Confirmed) Active Social History Social History Type Response Smoking Status Never (less than 100 in lifetime); Exposure to Secondhand Smoke: No entered on: 05/21/21 Sex
--- OUTSIDE RECORDS SUMMARY | 2023-07-08 20:45 | XMS_ITS | Continuity of Care Document ---
Author Name Unknown Organization [facility] Address Unknown Care Team Providers Care Towel Weaver Name Role Phone Carolyn NÚÑEZ, Renetta García Primary Care Physici an Encounter [facility] Date(s): 10/11/21 - 11/10/21 [facility] Allergies, Adverse Reactions, Alerts No [...] by mouth daily for bladder spasms in bahamian please ke, # 5 capsule, Refills 0, Tot. Refills 0, Maintenance, 05/03/21 16:06:00 EST, Route to Pharmacy Electronically, [facility] [place],... Start Date: 05/03/21 Stop Date: 05/08/21 Status: Ordered Problem List Condition Effective Dates Status Health Status Inform ant Asthma(Confirmed) Active Chronic pelvic pain in female(Confirmed) Active Irregular menses(Confirmed) Active Kuwaiti speaking patient - i nterpreter required(Confirmed) Active Dyspareunia, female(Confirmed) Active Last Pap smear 08/31/20 negat nicole with negative HPV(Confirmed) Active Social History Social History Type Response Smoking Status Never (less than 100 in lifetime); Exposure to Secondhand Smoke: No entered on: 05/21/21 Sex
[2023-07-08 20:52] LABS: IDNOW Serial# 9DB6401D; Influenza A Negative (Negative); Influenza B2 Negative (Negative)
[2023-07-08 20:54] LABS: COVID-19 Test Negative (Negative); IDNOW Serial# 08D9AD1C
--- NOTE | 2023-07-08 21:05 | ED.URI ---
HPI - URI/Sore Throat General Chief Complaint: Upper Respiratory Symptoms Stated Complaint: flu symptoms Time Seen by Provider: 07/08/23 21:02 Source: patient Mode of arrival: ambulatory Limitations: no limitations History of Present Illness HPI Narrative: 28 yo female with PMH of asthma has INH at home at this time she c/o cough, fevers, chills difficulty breathing for 1 week with sputum production no travel or known sick contacts. MD elicited complaint: cough Pertinent past history: asthma Onset (ago): week(s) (1) Consistency: constant Severity: moderate Description of mucous: watery Able to tolerate fluids by mouth: Yes Exacerbating factors: other (coughing) Relieving factors: nothing Associated symptoms: chills, headache, rhinorrhea, cough and shortness of breath Treatments prior to arrival: other (rescue inhaler) Related Data Previous Rx's Medication Instructions Recorded azithromycin 250 mg tablet 250 mg PO DAILY 4 days #4 tabs 07/08/23 prednisone 20 mg tablet 40 mg (2 x 20 mg) PO DAILY 4 days 07/08/23 #8 tabs Allergies Allergy/AdvReac Type Severity Reaction Status Date / Time No Known Allergies Allergy Verified 07/08/23 20:07 Review of Systems Review of Systems: Constitutional : No Fever, pos Chills ENT/Mouth : No Hoarseness, No sore throat, pos Rhinorrhea Eyes: No Redness, No Discharge, No Vision Changes Cardiovascular : No Chest Pain, positive SOB, positive Dyspnea on Exertion, No Edema Respiratory : positive Cough, pos Sputum, positive Wheezing, Gastrointestinal : No Nausea, No Vomiting, No Diarrhea, No abdominal Pain Genitourinary : No Dysuria, No Hematuria Musculoskeletal : No joint pain, No Myalgias Skin : No rash Neuro : No Weakness, No Numbness, No Headache Psych : No anxiety, depression Heme/Lymph: No Bruising, No Bleeding Endocrine : No Polyuria, No Polydipsia All other systems reviewed and are negative [facility] Past Medical History Attestation statement: The following information was validated with the patient. Medical History Asthma Social History Social History (Updated 07/08/23 @ 21:40 by Briana Bethea DO) Patient Tobacco Use Status: Never used Tobacco Physical Exam Vital Signs: Vital Signs: Last Vital Signs Temp 97.7 F 07/08/23 20:03 Pulse 72 07/08/23 20:03 Resp 19 07/08/23 20:03 BP 100/64 07/08/23 20:03 Pulse Ox 97 07/08/23 20:03 O2 Del Method Room Air 07/08/23 20:03 BMI result Body Mass Index 23.7 Appearance: Alert. Oriented X3. No acute distress. Eyes: Pupils equal, round and reactive to light. ENT: Pharynx normal. TMs normal bilaterally Neck: Normal inspection. Neck supple. CVS: Normal heart rate and rhythm. Pulses normal. Respiratory: No respiratory distress. Breath sounds normal. Abdomen: Soft and nontender. Skin: Skin warm and dry. Normal skin color. Normal skin turgor. Extremities: No lower extremity edema. No calf ttp Neuro: Oriented X 3. No motor deficit. No sensory deficit. Medical Decision Making Medical Decision Making [facility] Narrative: 28 yo female with asthma here with productive cough and chills for one week - VS stable no hypoxia viral panel and CXR ordered - given duration and asthma hx will start on prednisone and zpak. She was given precautions to return suspect bronchitis Differential Diagnosis Differential Diagnoses: The differential diagnosis associated with the presentation includes pneumonia, bronchitis, viral panel Admission/Observation Consideration of admission/observation: Escalation of care including admission/observation considered no hypoxia, tolerating PO stable for DC Lab Data [facility] Lab Attestation statement: I reviewed the patient's lab results. Labs: Lab Results 07/08/23 Range/Units 20:23 COVID-19 (REE) Negative (Negative) COVID-19 Clin Com See Note Influenza Type A (HANH) Negative (Negative) Influenza Type B (HANH) Negative (Negative) Influenza A & B Note See Note Independent Interpretation I performed an independent interpretation of an: Plain X-Ray (no pneumonia) Radiology Impression Discussion of test interpretation with radiology: I have reviewed the radiologist's reading. Independent Historian Clinical information obtained from an independent historian. History obtained from or confirmed by: Spouse Prescription Management I considered prescription management with: Antibiotic and Other Discharge Plan Discharge Clinical Impression: Bronchitis Patient Disposition: Home, Self-Care Instructions: Acute Bronchitis (ED) Additional Instructions: continue to use your inhaler. return for worsening symptoms increased fevers, difficulty breathing, vomiting, no improvement or any other concerns. Contin?e usando gusman inhalador. Regrese si los s?ntomas empeoran, aumento de la fiebre, dificultad para respirar, v?mitos, falta de mejor?a o cualquier otra inquietud. Prescriptions: New azithromycin 250 mg tablet 250 mg PO DAILY 4 Days Qty: 4 0RF Rx Instructions: start on day 2 of therapy prednisone 20 mg tablet 40 mg PO DAILY 4 Days Qty: 8 0RF Stand Alone Forms: Work/School Release Print Language: Nauruan
[2023-07-08] MEDS: Azithromycin 500 MG TABLET PO (21:39)
[2023-07-08] MEDS: predniSONE 20 MG TABLET 40 MG PO (21:39)
== END 2023-07-08 21:41 | disposition home or self-care (01) ==
PROVIDERS: Emergency Provider Emergency Medicine
DX: J40 Bronchitis, not specified as acute or chronic (principal); Z11.52 Encounter for screening for COVID-19
CPT/HCPCS: 71045; 87502; 87635; 99282; 99283

== ENCOUNTER 2023-07-14 19:50 | Emergency (ER) | payer OTHER, SELFPAY ==
--- NOTE | ~2023-07-14 | XR_ITS ---
EXAMINATION: XR CHEST 2 VIEWS CLINICAL INFORMATION: Cough and shortness of breath. COMPARISON: Chest radiograph dated 07/08/2003. TECHNIQUE: Frontal and lateral views of the chest were obtained. FINDINGS: The heart, great vessels, pulmonary vasculature and mediastinum are normal. The lungs show no focal infiltrate, effusion or pneumothorax. There is no acute osseous abnormality. XR/XR chest 2V IMPRESSION: No active cardiopulmonary disease.
--- NOTE | 2023-07-14 20:19 | ED_ITS ---
HPI - General Adult General Chief complaint: Upper Respiratory Symptoms Stated complaint: asthma, back pain Time Seen by Provider: 07/14/23 23:52 Related Data Previous Rx's Medication Instructions Recorded azithromycin 250 mg tablet 250 mg PO DAILY 4 days #4 tabs 07/08/23 prednisone 20 mg tablet 40 mg (2 x 20 mg) PO DAILY 4 days 07/08/23 #8 tabs benzonatate 100 mg capsule 100 mg PO TID PRN cough #20 caps 07/15/23 promethazine-phenylephrine 6.25 5 ml PO Q4-6H PRN cold symptoms 07/15/23 mg-5 mg/5 mL oral syrup #100 mL (Promethazine VC) Allergies Allergy/AdvReac Type Severity Reaction Status Date / Time No Known Allergies Allergy Verified 07/14/23 20:19 [facility] Past Medical History Medical History Asthma Social History Social History (Updated 07/08/23 @ 21:40 by Briana Bethea DO) Patient Tobacco Use Status: Never used Tobacco Smoked in Last 30 Days: No Use of substances other than those prescribed or required for medical reasons: No Advance Directives: No Advance Directives Information Provided: No Patient : No Physical Exam ED Vital Signs: Vital Signs - 24 hr 07/14/23 20:20 07/14/23 23:52 Temperature 99.3 F 98.5 F Pulse Rate 118 H 93 Respiratory Rate 19 14 Blood Pressure 136/63 104/59 L Pulse Oximetry 98 99 Oxygen Delivery Method Room Air Room Air BMI result Body Mass Index 23.4 Course Course Course Narrative: This is an RME: Additional HPI, ROS, PE not included below will be deferred to primary provider. Patient is a 28-year-old female who presents to the emergency department evaluation of seen 1w ago for cough, back pain, diagnosed bronchitis, states symptoms not improving, in fact seems worse, severe body aches and pain, tactile fever. Plan: viral testing, CXR Medical Decision Making Lab Data Labs: Lab Results 07/14/23 Range/Units 21:08 COVID-19 (REE) Negative (Negative) COVID-19 Clin Com See Note Influenza Type A (HANH) Negative (Negative) Influenza Type B (HANH) Negative (Negative) Influenza A & B Note See Note Radiology Impression Discussion of test interpretation with radiology: I have reviewed the r adiologist's reading. Radiologist Impression: [address] [address] XRay Report Signed Patient: Daren Stone MR#: [id number] : 1995 Acct:[id number] Age/Sex: 28 / F ADM Date: 07/14/23 Loc: HO.ED Attending Dr: Ordering Physician: Magdalena Alcantara CNP Date of Service: 07/14/23 Procedure(s): XR chest 2V Accession Number(s): [id number] cc: Magdalena Alcantara CNP; Physician,Unknown ~ EXAMINATION: XR CHEST 2 VIEWS CLINICAL INFORMATION: Cough and shortness of breath. COMPARISON: Chest radiograph dated 07/08/2003. TECHNIQUE: Frontal and lateral views of the chest were obtained. FINDINGS: The heart, great vessels, pulmonary vasculature and mediastinum are normal. The lungs show no focal infiltrate, effusion or pneumothorax. There is no acute osseous abnormality. XR/XR chest 2V IMPRESSION: No active cardiopulmonary disease. Dictated By: Zia Johnson MD Signed By: <Electronically signed by Zia Johnson MD in OV> 07/14/23 2142 DD/ 2100 TD/TT: Steward/Stewardess Smoke Room: PAU Discharge Plan Discharge Clinical Impression: Upper respiratory infection Qualifiers: URI type: unspecified viral URI Qualified Code(s): J06.9 - Acute upper respiratory infection, unspecified Patient Disposition: Home, Self-Care Instructions: Upper Respiratory Infection (ED) Additional Instructions: Tessalon Perles as directed for cough. Cough medicine as directed. Do not drive or operate heavy machinery drink alcohol while taking this medication as it may make you drowsy. Continue albuterol as directed. Follow-up with your primary care provider. Call this week to schedule a follow- up appointment. Return to the emergency department if you have any worsening of symptoms, or any concerns. Get well soon! Prescriptions: New benzonatate 100 mg capsule 100 mg PO TID PRN (Reason: cough) Qty: 20 0RF promethazine-phenylephrine [Promethazine VC] 6.25-5 mg/5 mL syrup 5 ml PO Q4-6H PRN (Reason: cold symptoms) Qty: 100 0RF No Action azithromycin 250 mg tablet 250 mg PO DAILY 4 Days Qty: 4 0RF Rx Instructions: start on day 2 of therapy prednisone 20 mg tablet 40 mg PO DAILY 4 Days Qty: 8 0RF Stand Alone Forms: Work/School Release Interventions: ED Discharge Assessment Last Done: 07/15/23 00:23 Discharge Date/Time: 07/15/23 00:25 Print Language: Amharic
[2023-07-14 20:20] VITALS: BP 136/63; PULSE 118; RESP 19; TEMP 37.4; O2SAT 98; BMI 23.4
--- NOTE | 2023-07-14 21:10 | MHC.EDTECH ---
PATIENT FLU/COVID SWAB COLLECTED AND SENT TO LAB .
[2023-07-14 21:29] LABS: COVID-19 Test Negative (Negative); IDNOW Serial# 58CA691E; IDNOW Serial# 9DB6401D; Influenza A Negative (Negative); Influenza B2 Negative (Negative)
[2023-07-14 23:52] VITALS: BP 104/59; PULSE 93; RESP 14; TEMP 36.9; O2SAT 99
== END 2023-07-15 00:25 | disposition home or self-care (01) ==
PROVIDERS: Nurse Practitioner Family; Emergency Provider Student in an Organized Health Care Education/Training Program
DX: J06.9 Acute upper respiratory infection, unspecified (principal); R06.02 Shortness of breath; J45.909 Unspecified asthma, uncomplicated; Z11.52 Encounter for screening for COVID-19
CPT/HCPCS: 71046; 87502; 87635; 99283; 99284

== ENCOUNTER 2024-05-14 16:53 | Emergency (ER) | payer OTHER, SELFPAY ==
[2024-05-14 17:37] VITALS: BP 115/37; PULSE 89; RESP 20; TEMP 36.9; O2SAT 100; BMI 26.6
--- NOTE | 2024-05-14 17:41 | ED_ITS ---
HPI - General Adult General Chief complaint: Urogenital-Female Stated complaint: left side lwr back pain when urinates Time Seen by Provider: 05/14/24 21:28 Source: patient Mode of arrival: ambulatory Limitations: no limitations History of Present Illness ED Provider: Magdalena Alcantara NP HPI narrative: Patient is a 29-year-old female presents emergency department for evaluation of dysuria and urinary frequency with onset yesterday. Endorsing pain to the left lower back, she noticed a small amount of blood on the toilet tissue when she wiped today was pink in color. Denies associated fevers, chills, nausea, vomiting, abdominal pain, abnormal vaginal discharge or bleeding, pelvic pain, concern for sexually transmitted infections. Denies constipation or diarrhea. Reports history of urinary tract infections, denies history of kidney stones. Related Data Previous Rx's ?Medication ?Instructions ?Recorded azithromycin 250 mg tablet 250 mg PO DAILY 4 days #4 tabs 07/08/23 prednisone 20 mg tablet 40 mg (2 x 20 mg) PO DAILY 4 days 07/08/23 #8 tabs benzonatate 100 mg capsule 100 mg PO TID PRN cough #20 caps 07/15/23 promethazine-phenylephrine 6.25 5 ml PO Q4-6H PRN cold symptoms 07/15/23 mg-5 mg/5 mL oral syrup #100 mL (Promethazine VC) cefuroxime axetil 250 mg tablet 250 mg PO BID #13 tabs 05/14/24 Allergies Allergy/AdvReac Type Severity Reaction Status Date / Time No Known Allergies Allergy Verified 05/14/24 17:41 Review of Systems 2 Review of Systems: Yes all other systems are reviewed and are negative [facility] Past Medical History Attestation statement: The following information was validated with the patient. Source: old records reviewed Medical History Asthma Social History Social History (Updated 07/08/23 @ 21:40 by Briana Bethea DO) Patient Tobacco Use Status: Never used Tobacco Advance Directives: No Advance Directives Information Provided: No Physical Exam ED Vital Signs: Vital Signs - 24 hr 05/14/24 17:37 05/14/24 21:32 05/14/24 22:32 Temperature 98.4 F 98.1 F 97.4 F Pulse Rate 89 88 70 Respiratory Rate 20 16 16 Blood Pressure 115/37 L 102/56 L 97/51 L Pulse Oximetry 100 98 100 Oxygen Delivery Method Room Air Room Air Room Air 05/14/24 22:44 Temperature 97.4 F Pulse Rate 70 Respiratory Rate 16 Blood Pressure 97/51 L Pulse Oximetry 100 Oxygen Delivery Method Room Air BMI result Body Mass Index 26.6 Appearance: Alert.?Oriented to person, place and time. No acute distress.?Normal affect. Eyes: Pupils equal, round and reactive to light.? ENT: Pharynx normal.?? Neck: Normal inspection.? Neck supple.?? CVS: Heart sounds normal. Normal heart rate and rhythm.? Pulses normal.?? Respiratory: No respiratory distress.? Lung sounds clear to auscultation bilaterally?? Abdomen: Soft and non-tender. Normoactive bowel sounds. No CVAT Skin: Skin warm and dry.? Normal skin color.? Extremities: No lower extremity edema.? Neuro: Moves all extremities spontaneously. Sensation intact bilaterally. CN II- XII intact. No focal neuro deficits. Ambulates with normal steady gait. Course Course Course Narrative: This is an RME: Additional HPI, ROS, PE not included below will be deferred to primary provider. RME assessment and note performed by: Lisa Diallo PA-C This is a 29-year-old female who presents emergency department with complaints of dysuria and urinary frequency since yesterday. Also reporting left-sided flank pain. Patient noted to have hematuria today. No history of UTIs in the past. No history of kidney stones. No chance of due to tubal ligation. She is sexually active, denies chance of STI. Plan: Labs, UA, further ER eval needed Medications Administered Discontinued Medications Generic Name Dose Route Start Last Admin Trade Name Freq PRN Reason Stop Dose Admin Cefuroxime Axetil 250 mg 05/14/24 22:29 05/14/24 22:41 Cefuroxime Axetil 250 Mg Tablet PO 05/14/24 22:30 250 mg ONCE ONE Administration Medical Decision Making Medical Decision Making MDM Narrative: Patient is a 29-year-old female presents emergency department for evaluation of urinary frequency and dysuria as per HPI, history of urinary tract infections. Small amount of blood on toilet tissue. Urinalysis without steatosis anemia or thrombocytopenia. No electrolyte derangement. No DINORA. LFTs. HCG is negative. Declines insert for sexually transmitted infections and declines testing. Urinalysis with trace blood and urine RBCs, trace leukocyte esterase and urine WBC given symptoms concern for urinary tract infection. Initiating treatment cefuroxime. We discussed the possibility for VB that may mimic similar symptoms, she declines testing for this. Low suspicion for renal colic/ureteral calculi, no CVA tenderness. Abdominal examination benign. Advised outpatient follow-up with primary care doctor. All questions answered. Stable for discharge. Differential Diagnosis Differential Diagnoses: The differential diagnosis associated with the presentation includes (See narrative above) Admission/Observation Consideration of admission/observation: Escalation of care including admission/observation considered Lab Data MDM Lab Attestation statement: I reviewed the patient's lab results. (See narrative above) 05/14/24 18:15 05/14/24 18:15 Labs: Lab Results 05/14/24 Range/Units 18:15 WBC 7.3 (4.8-10.8) X10*3/uL RBC 4.84 (4.20-5.50) X10*6/uL Hgb 14.4 (12.0-16.0) g/dl Hct 42.9 (37.0-47.0) % MCV 88.6 (80.0-98.0) fL MCH 29.8 (27.0-33.0) pg MCHC 33.6 (31.0-35.0) g/dl RDW 12.7 (11.0-16.0) % Plt Count 230 (160-400) X10*3/uL MPV 11.8 (9.4-12.3) fL Immature Gran % (Auto) 0.3 (0.0-0.4) % Neut % (Auto) 66.6 (45-73) % Lymph % (Auto) 24.9 (20-40) % [place] % (Auto) 5.7 (2-11) % Eos % (Auto) 2.2 (0-4) % Baso % (Auto) 0.3 (0-2) % Lymph # (Auto) 1.8 (1.2-4.9) X10*3/uL [place] # (Auto) 0.4 (0.1-1.2) X10*3/uL Eos # (Auto) 0.2 (0.0-0.4) X10*3/uL Baso # (Auto) 0.0 (0.0-0.2) X10*3/uL Abs Immat Gran (auto) 0.02 (0.00-0.03) X10*3/uL Absolute Neuts (auto) 4.9 (2.0-8.3) x10*3/uL Absolute Nucleated RBC 0.000 (0.0-0.012) X10*3/uL Nucleated RBC % (auto) 0.0 (0.0-0.2) /100WBC Sodium 141 (135-145) mmol/L Potassium 3.3 (3.3-5.1) mmol/L Chloride 104 (96-108) mmol/L Carbon Dioxide 28 (22-29) mmol/L Anion Gap 12 (12-20) BUN 5 L (9-16) mg/dL Creatinine 0.72 (0.5-1.4) mg/dL Estim Creat Clear Calc 96.9 Estimated GFR > 60 Random Glucose 108 (60-115) mg/dL Calcium 9.1 (8.4-10.2) mg/dL Total Bilirubin 0.7 (0.0-1.0) mg/dL AST 25 (5-31) U/L ALT 32 H (0-31) U/L Alkaline Phosphatase 73 (39-117) U/L Total Protein 7.8 (6.5-8.0) g/dL Albumin 4.8 (3.5-5.0) g/dL Lipase 9 (8-78) U/L Beta HCG, Quant < 2 mIU/mL Urine Color Yellow Urine Appearance Clear Urine pH 7.0 (5.0-9.0) Ur Specific [place] 1.015 (1.005-1.025) Urine Protein Negative (Neg-Trace) mg/dL Urine Glucose (UA) Negative (Negative) mg/dL Urine Ketones 15 (Negative) mg/dL Urine Blood Trace H (Negative) Urine Nitrite Negative (Negative) Ur Leukocyte Esterase Trace H (Negative) Urine RBC 11-20 H (0-2) /HPF Urine WBC 6-10 H (0-5) /HPF Ur Squamous Epith Cells 3-5 (0-2) /HPF Urine Bacteria None Seen (None Seen) Hyaline Casts 0-2 (0-2) /LPF External Record Review External record reviewed: Outpatient record Prescription Management I considered prescription management with: Antibiotic Discharge Plan Discharge Clinical Impression: Urinary tract infection Patient Disposition: Home, Self-Care Instructions: Urinary Tract Infection in Women (ED) Additional Instructions: Please complete the entire course of antibiotics as prescribed. Do not skip any doses or stopped taking early even if you begin to feel better. Follow-up with your primary care doctor. Return with any new or worsening symptoms or concerns such as increased pain, inability to urinate, blood in the urine, nausea, vomiting, pain extending up the back, fevers, chills. Prescriptions: New cefuroxime axetil 250 mg tablet 250 mg PO BID Qty: 13 0RF No Action azithromycin 250 mg tablet 250 mg PO DAILY 4 Days Qty: 4 0RF Rx Instructions: start on day 2 of therapy prednisone 20 mg tablet 40 mg PO DAILY 4 Days Qty: 8 0RF benzonatate 100 mg capsule 100 mg PO TID PRN (Reason: cough) Qty: 20 0RF promethazine-phenylephrine [Promethazine VC] 6.25-5 mg/5 mL syrup 5 ml PO Q4-6H PRN (Reason: cold symptoms) Qty: 100 0RF Referrals: Physician,Unknown J [Primary Care Provider] - Interventions: ED Discharge Assessment Last Done: 05/14/24 22:44 Discharge Date/Time: 05/14/24 22:44 Print Language: Wolof
[2024-05-14 18:25] LABS: MANUAL DIFF FLAG NO
[2024-05-14 18:31] LABS: Basophils Percent Auto 0.3 % (0-2); Eosinophils Absolute Auto 0.2 X10*3/uL (0.0-0.4); Eosinophils Percent Auto 2.2 % (0-4); Hematocrit 42.9 % (37.0-47.0); Hemoglobin 14.4 g/dl (12.0-16.0); Imm Gran Abs Auto 0.02 X10*3/uL (0.00-0.03); Imm Gran Pct Auto 0.3 % (0.0-0.4); Lymphocytes Absolute Auto 1.8 X10*3/uL (1.2-4.9); Lymphocytes Percent Auto 24.9 % (20-40); Mean Corpuscular HGB Conc 33.6 g/dl (31.0-35.0); Mean Corpuscular Hemoglobin 29.8 pg (27.0-33.0); Mean Corpuscular Volume 88.6 fL (80.0-98.0); Mean Platelet Volume 11.8 fL (9.4-12.3); Monocytes Absolute Auto 0.4 X10*3/uL (0.1-1.2); Monocytes Percent Auto 5.7 % (2-11); Neutrophils Absolute Auto 4.9 x10*3/uL (2.0-8.3); Neutrophils Percent Auto 66.6 % (45-73); Platelet Count 230 X10*3/uL (160-400); Red Blood Count 4.84 X10*6/uL (4.20-5.50); Red Cell Distribution Width 12.7 % (11.0-16.0); White Blood Count 7.3 X10*3/uL (4.8-10.8)
[2024-05-14 18:32] LABS: Appearance Urine Clear; Color Urine Yellow; Glucose Urine UA Negative (Negative); Leukocyte Esterase Urine Trace (Negative); Nitrite Urine Negative (Negative); Specific Gravity - Urine 1.015 (1.005-1.025); UMIC TRIGGER UACC YES; Urine Blood Trace (Negative); Urine Ketones 15 mg/dL (Negative); Urine Protein Negative (Neg-Trace)
[2024-05-14 18:48] LABS: Alanine Aminotransferase 32 U/L (0-31); Albumin Level 4.8 g/dL (3.5-5.0); Alkaline Phosphatase 73 U/L (39-117); Anion Gap 12 (12-20); Aspartate Amino Transferase 25 U/L (5-31); Bilirubin Total 0.7 mg/dL (0.0-1.0); Blood Urea Nitrogen 5 mg/dL (9-16); Calcium 9.1 mg/dL (8.4-10.2); Carbon Dioxide 28 mmol/L (22-29); Chloride 104 mmol/L (96-108); Creatinine Clr Calc Pharmacy 96.9; Estimated Glomerular Filt Rate > 60; Glucose Random 108 mg/dL (60-115); HCG Quantitative < 2 mIU/mL; Lipase 9 U/L (8-78); Potassium 3.3 mmol/L (3.3-5.1); Sodium 141 mmol/L (135-145); Total Protein 7.8 g/dL (6.5-8.0)
[2024-05-14 20:15] LABS: Bacteria Urine None Seen (None Seen); Hyaline Casts Urine 0-2 /LPF (0-2); UACC Culture Trigger YES
[2024-05-14 21:32] VITALS: BP 102/56; PULSE 88; RESP 16; TEMP 36.7; O2SAT 98
[2024-05-14 22:32] VITALS: BP 97/51; PULSE 70; RESP 16; TEMP 36.3; O2SAT 100
[2024-05-14] MEDS: cefuroxime axetiL 250 MG TABLET PO (22:41)
[2024-05-14 22:44] VITALS: BP 97/51; PULSE 70; RESP 16; TEMP 36.3; O2SAT 100
== END 2024-05-14 22:44 | disposition home or self-care (01) ==
PROVIDERS: Physician Assistant Medical; Emergency Provider Emergency Medicine
DX: N39.0 Urinary tract infection, site not specified (principal); R30.0 Dysuria; R35.0 Frequency of micturition; J45.909 Unspecified asthma, uncomplicated
CPT/HCPCS: 36415; 80053; 81001; 83690; 84702; 85025; 87086; 87088; 87186; 99283